=== PATIENT | male | born 1995 | race Caucasian/White ===

== ENCOUNTER 2021-03-07 11:51 | Inpatient (IN) | payer OTHER ==
[~2021-03-07] VITALS: Ht 170.2 cm; Wt 80.6 kg
[2021-03-07] MEDS ORDERED: ONDANSETRON HCL 4 MG/2 ML VIAL IVP ONE (12:45)
[2021-03-07] MEDS ORDERED: SODIUM CHLORIDE 0.9% 1,000 ML IV ONE (12:45)
[2021-03-07 12:55] LABS: GLUCOSE,POINT OF CARE 572 MG/DL (70-110)
[2021-03-07 13:00] LABS: APPEARANCE,URINE CLEAR (CLEAR); BILIRUBIN,URINE NEGATIVE (NEGATIVE); GLUCOSE, URINE (UA) >=1000 mg/dL (NEGATIVE); KETONES,URINE >=80 mg/dL (NEGATIVE); LEUKOCYTE ESTERASE ,URINE NEGATIVE (NEGATIVE); NITRATE,URINE NEGATIVE (NEGATIVE); OCCULT BLOOD,URINE NEGATIVE (NEGATIVE); PROTEIN,URINE NEGATIVE (NEGATIVE); UROBILINOGEN,URINE 0.2 mg/dL (<=1.0)
[2021-03-07] MEDS ORDERED: INSULIN REGULAR, HUMAN 100 UNITS/ML IVP ONE ×3 (13:00→17:15)
[2021-03-07 13:07] LABS: BACTERIA,URINE None Seen /HPF (None Seen); RBC,URINE None Seen /HPF (0-2); SQUAMOUS EPITHELIAL CELL,UR Few /LPF (None Seen); WBC,URINE None Seen /HPF (0-5)
[2021-03-07 14:24] LABS: HEMOGLOBIN 15.8 g/dL (13.5-17.5); MEAN CORPUSCULAR HEMOGLOBIN 27.3 pg (26.0-34.0); MEAN CORPUSCULAR HGB CONC 32.3 G/dL (31.0-37.0); MEAN CORPUSCULAR VOLUME 85 fL (80-100); PLATELET COUNT (AUTO) 367 K/uL (150-450); RED BLOOD CELL COUNT(AUTO) 5.78 MIL/uL (4.50-5.90); RED CELL DISTRIBUTION WIDTH 13.3 % (11.5-14.5)
[2021-03-07 14:39] LABS: ALANINE AMINOTRANSFERASE 21 U/L (12-78); ALBUMIN 3.7 g/dL (3.4-5.0); ALKALINE PHOSPHATASE 182 U/L (46-116); ANION GAP 32 mmol/L (8-16); ASPARTATE AMINOTRANSFERASE 14 U/L (15-37); BILIRUBIN,TOTAL 0.5 mg/dL (0.1-1.0); CALCIUM, TOTAL 9.1 mg/dL (8.8-10.5); CHLORIDE 92 mmol/L (98-107); CREATININE 1.21 mg/dL (0.60-1.30); GLOMERULAR FILTR. RATE CALC > 60 mL/min (>60); POTASSIUM 4.9 mmol/L (3.5-5.1); SODIUM SERUM 129 mmol/L (136-145); TOTAL PROTEIN, SERUM 8.4 g/dL (6.4-8.2); UREA NITROGEN, BLOOD 22 mg/dL (7-18)
[2021-03-07 14:40] LABS: CARBON DIOXIDE 5 mmol/L (22-29); GLUCOSE,RANDOM 482 mg/dL (70-110)
[2021-03-07] MEDS ORDERED: SODIUM CHLORIDE 0.45% 1,000 ML IV PRN ×2 (14:45→17:15)
[2021-03-07] MEDS ORDERED: INSULIN REGULAR, HUMAN 100 UNITS/ML IVP PRN ×2 (14:45→17:15)
[2021-03-07] MEDS ORDERED: POTASSIUM CHLORIDE 40 MEQ in SODIUM CHLORIDE 0.45% 1,000 ML IV PRN ×2 (14:45→17:15)
[2021-03-07] MEDS ORDERED: DEXTROSE 50%-WATER 25 GM/50 ML SYRINGE IVP PRN ×2 (14:45→17:15)
[2021-03-07] MEDS ORDERED: INSULIN REGULAR, HUMAN 100 UNITS in SODIUM CHLORIDE 0.9% 99 ML IV PRN ×4 (14:45→17:15)
[2021-03-07] MEDS ORDERED: DEXTROSE 5%-0.45% SODIUM CHL 1,000 ML IV PRN ×2 (14:45→17:15)
[2021-03-07] MEDS ORDERED: POTASSIUM CHL 20 MEQ/0.45% NS 1,000 ML IV PRN ×2 (14:45→17:15)
[2021-03-07] MEDS ORDERED: SODIUM CHLORIDE 0.9% 1,000 ML IV SCH ×2 (14:45→17:15)
[2021-03-07] MEDS ORDERED: ONDANSETRON HCL 4 MG/2 ML VIAL IVP PRN ×2 (15:00→17:15)
[2021-03-07] MEDS ORDERED: ACETAMINOPHEN 325 MG TABLET PO PRN ×2 (15:00→17:15)
[2021-03-07 15:07] LABS: GLUCOMETER DEV NAME(LOC) AHU.; GLUCOSE,POINT OF CARE 348 MG/DL (70-110)
[2021-03-07 15:32] LABS: BAND NEUTROPHILS % (MANUAL) 2 % (0-5); LYMPHOCYTES % (MANUAL) 12 % (22-44); MONOCYTES % (MANUAL) 4 % (2-9); MYELOCYTES % 2 % (0-0); SEGMENTED NEUTROPHILS % 80 % (40-70)
[2021-03-07 16:28] LABS: GLUCOMETER DEV NAME(LOC) AHU.; GLUCOSE,POINT OF CARE 243 MG/DL (70-110)
[2021-03-07 16:50] LABS: COVID AG,FIA SOURCE NASOPHARYNGEAL
[2021-03-07 16:54] LABS: ANION GAP 19 mmol/L (8-16); CARBON DIOXIDE 12 mmol/L (22-29); CHLORIDE 98 mmol/L (98-107); CREATININE 1.22 mg/dL (0.60-1.30); GLOMERULAR FILTR. RATE CALC > 60 mL/min (>60); GLUCOSE,RANDOM 229 mg/dL (70-110); POTASSIUM 4.1 mmol/L (3.5-5.1); SODIUM SERUM 129 mmol/L (136-145); UREA NITROGEN, BLOOD 20 mg/dL (7-18)
[2021-03-07] MEDS ORDERED: MAGNESIUM OXIDE 400 MG TABLET PO PRN (17:15)
[2021-03-07] MEDS ORDERED: IPRATROPIUM BROMIDE 0.5 MG/2.5 ML NEB SOLUTION NEB PRN (17:15)
[2021-03-07] MEDS ORDERED: ALBUTEROL SULFATE 2.5 MG/0.5 ML NEB SOLUTION NEB PRN (17:15)
[2021-03-07] MEDS ORDERED: POTASSIUM CHLORIDE 20 MEQ ER TABLET PO PRN (17:15)
[2021-03-07] MEDS ORDERED: MAGNESIUM SULFATE 2 GM/WATER 50 ML IV PRN (17:15)
[2021-03-07] MEDS ORDERED: POTASSIUM CHL 10 MEQ/WATER 50 ML IV PRN (17:15)
[2021-03-07] MEDS ORDERED: MAGNESIUM SULFATE 4 GM/WATER 100 ML IV PRN (17:15)
[2021-03-07] MEDS ORDERED: BISACODYL 10 MG RECTAL RECTAL SUPPOSITORY PR PRN (17:15)
[2021-03-07] MEDS ORDERED: ZOLPIDEM TARTRATE 5 MG TABLET PO PRN (17:15)
[2021-03-07] MEDS ORDERED: MAGNESIUM HYDROXIDE SUSPENSION 30 ML UDCUP PO PRN (17:15)
[2021-03-07 17:25] LABS: GLUCOMETER DEV NAME(LOC) AHU.; GLUCOSE,POINT OF CARE 147 MG/DL (70-110)
[2021-03-07 17:42] LABS: ALBUMIN 3.8 g/dL (3.4-5.0)
[2021-03-07] MEDS ORDERED: NICOTINE 21 MG/24 HOUR PATCH TD ONE (18:15)
[2021-03-07] MEDS: MORPHINE SULFATE 2 MG/ML SYRINGE IVP PRN ×2 (18:18→20:21)
[2021-03-07 18:29] LABS: AMPHET/METH SCREEN,URINE NEGATIVE (NEGATIVE); BARBITURATE SCREEN, URINE NEGATIVE (NEGATIVE); BENZODIAZEPINES SCREEN,URINE NEGATIVE (NEGATIVE); CANNABINOID SCREEN,URINE NEGATIVE (NEGATIVE); COCAINE SCREEN,URINE NEGATIVE (NEGATIVE); METHADONE SCREEN, URINE NEGATIVE (NEGATIVE); OPIATE SCREEN,URINE NEGATIVE (NEGATIVE); PHENCYCLIDINE SCREEN,URINE NEGATIVE (NEGATIVE)
[2021-03-07 20:00] VITALS: BP 127/66
[2021-03-07] MEDS: DOCUSATE SODIUM 100 MG CAPSULE PO SCH (20:22)
[2021-03-07 21:15] LABS: ANION GAP 13 mmol/L (8-16); CALCIUM, TOTAL 8.1 mg/dL (8.8-10.5); CARBON DIOXIDE 19 mmol/L (22-29); CHLORIDE 102 mmol/L (98-107); CREATININE 1.06 mg/dL (0.60-1.30); GLOMERULAR FILTR. RATE CALC > 60 mL/min (>60); GLUCOSE,RANDOM 65 mg/dL (70-110); PHOSPHORUS 3.1 mg/dL (2.5-4.9); POTASSIUM 3.8 mmol/L (3.5-5.1); SODIUM SERUM 134 mmol/L (136-145); UREA NITROGEN, BLOOD 15 mg/dL (7-18)
[2021-03-07 21:35] LABS: GLUCOSE,POINT OF CARE 97 MG/DL (70-110)
[2021-03-07 21:35] LABS: GLUCOSE,POINT OF CARE 82 MG/DL (70-110)
[2021-03-07 22:39] LABS: GLUCOSE,POINT OF CARE 118 MG/DL (70-110)
[2021-03-07 22:39] LABS: GLUCOSE,POINT OF CARE 96 MG/DL (70-110)
[2021-03-07 23:11] LABS: GLUCOSE,POINT OF CARE 165 MG/DL (70-110)
[2021-03-07] MEDS: HEPARIN SODIUM,PORCINE 5,000 UNITS/ML VIAL SQ SCH (23:24)
[2021-03-08] VITALS (9 sets, daily range): BP systolic 111–139; BP diastolic 62–100
[2021-03-08] MEDS: MORPHINE SULFATE 2 MG/ML SYRINGE IVP PRN ×7 (00:48→23:29)
[2021-03-08 01:49] LABS: GLUCOSE,POINT OF CARE 124 MG/DL (70-110)
[2021-03-08 01:49] LABS: GLUCOSE,POINT OF CARE 57 MG/DL (70-110)
[2021-03-08 01:49] LABS: GLUCOSE,POINT OF CARE 95 MG/DL (70-110)
[2021-03-08 02:21] LABS: CARBON DIOXIDE 20 mmol/L (22-29); CHLORIDE 104 mmol/L (98-107); POTASSIUM 4.1 mmol/L (3.5-5.1); SODIUM SERUM 136 mmol/L (136-145)
[2021-03-08 02:22] LABS: ANION GAP 12 mmol/L (8-16); CALCIUM, TOTAL 7.9 mg/dL (8.8-10.5); CREATININE 1.07 mg/dL (0.60-1.30); GLOMERULAR FILTR. RATE CALC > 60 mL/min (>60); GLUCOSE,RANDOM 56 mg/dL (70-110); PHOSPHORUS 2.6 mg/dL (2.5-4.9); UREA NITROGEN, BLOOD 12 mg/dL (7-18)
[2021-03-08 03:33] LABS: GLUCOSE,POINT OF CARE 166 MG/DL (70-110)
[2021-03-08 03:33] LABS: GLUCOSE,POINT OF CARE 167 MG/DL (70-110)
[2021-03-08 04:01] LABS: GLUCOSE,POINT OF CARE 143 MG/DL (70-110)
[2021-03-08 05:52] LABS: ANION GAP 14 mmol/L (8-16); CALCIUM, TOTAL 8.3 mg/dL (8.8-10.5); CARBON DIOXIDE 18 mmol/L (22-29); CHLORIDE 103 mmol/L (98-107); CREATININE 0.88 mg/dL (0.60-1.30); GLOMERULAR FILTR. RATE CALC > 60 mL/min (>60); GLUCOSE,RANDOM 111 mg/dL (70-110); PHOSPHORUS 2.8 mg/dL (2.5-4.9); POTASSIUM 4.2 mmol/L (3.5-5.1); SODIUM SERUM 135 mmol/L (136-145); UREA NITROGEN, BLOOD 11 mg/dL (7-18)
[2021-03-08 07:37] LABS: GLUCOSE,POINT OF CARE 113 MG/DL (70-110)
[2021-03-08] MEDS: HEPARIN SODIUM,PORCINE 5,000 UNITS/ML VIAL SQ SCH ×3 (07:44→23:23)
[2021-03-08] MEDS: DOCUSATE SODIUM 100 MG CAPSULE PO SCH ×2 (08:19→20:22)
[2021-03-08] MEDS: PANTOPRAZOLE SODIUM 40 MG/VIAL IVP SCH (08:19)
[2021-03-08 11:21] LABS: GLUCOSE,POINT OF CARE 384 MG/DL (70-110)
[2021-03-08 11:33] LABS: GLUCOSE,POINT OF CARE 133 MG/DL (70-110)
[2021-03-08 12:18] LABS: GLUCOSE,POINT OF CARE 286 MG/DL (70-110)
[2021-03-08] MEDS: HYDROCODONE/ACETAMINOPHEN 5-325 MG TABLET PO PRN ×2 (12:57→17:07)
[2021-03-08 13:12] LABS: ANION GAP 13 mmol/L (8-16); CALCIUM, TOTAL 8.1 mg/dL (8.8-10.5); CARBON DIOXIDE 19 mmol/L (22-29); CHLORIDE 100 mmol/L (98-107); CREATININE 1.21 mg/dL (0.60-1.30); GLOMERULAR FILTR. RATE CALC > 60 mL/min (>60); GLUCOSE,RANDOM 246 mg/dL (70-110); PHOSPHORUS 1.7 mg/dL (2.5-4.9); POTASSIUM 4.3 mmol/L (3.5-5.1); SODIUM SERUM 132 mmol/L (136-145); UREA NITROGEN, BLOOD 10 mg/dL (7-18)
[2021-03-08 13:19] LABS: GLUCOSE,POINT OF CARE 191 MG/DL (70-110)
[2021-03-08] MEDS ORDERED: DEXTROSE 50%-WATER 25 GM/50 ML SYRINGE IVP PRN (14:15)
[2021-03-08] MEDS ORDERED: INSULIN REGULAR, HUMAN 100 UNITS/ML SQ ONE (14:15)
[2021-03-08] MEDS: INSULIN GLARGINE,HUM.REC.ANLOG 100 UNITS/ML SQ SCH ×2 (15:10→20:33)
[2021-03-08 18:23] LABS: BASOPHILS % (AUTO) 0.6 % (0.0-2.0); EOSINOPHILS % (AUTO) 2.9 % (1.0-6.0); HEMATOCRIT 40.6 % (41-53); HEMOGLOBIN 13.6 g/dL (13.5-17.5); LYMPHOCYTES # (AUTO) 2.7 K/uL (1.0-4.8); LYMPHOCYTES % (AUTO) 32.6 % (22.0-44.0); MEAN CORPUSCULAR HEMOGLOBIN 27.3 pg (26.0-34.0); MEAN CORPUSCULAR HGB CONC 33.6 G/dL (31.0-37.0); MEAN CORPUSCULAR VOLUME 81 fL (80-100); MONOCYTES # (AUTO) 0.4 K/uL (0.1-1.0); NEUTROPHILS # (AUTO) 4.9 K/uL (1.8-7.7); NEUTROPHILS % (AUTO) 58.9 % (40.0-70.0); PLATELET COUNT (AUTO) 311 K/uL (150-450); RED BLOOD CELL COUNT(AUTO) 4.99 MIL/uL (4.50-5.90); RED CELL DISTRIBUTION WIDTH 13.3 % (11.5-14.5)
[2021-03-08 18:47] LABS: ALANINE AMINOTRANSFERASE 21 U/L (12-78); ALBUMIN 2.9 g/dL (3.4-5.0); ALKALINE PHOSPHATASE 117 U/L (46-116); ANION GAP 11 mmol/L (8-16); ASPARTATE AMINOTRANSFERASE 23 U/L (15-37); BILIRUBIN,TOTAL 0.4 mg/dL (0.1-1.0); CALCIUM, TOTAL 8.1 mg/dL (8.8-10.5); CARBON DIOXIDE 19 mmol/L (22-29); CHLORIDE 101 mmol/L (98-107); CREATININE 0.99 mg/dL (0.60-1.30); GLOMERULAR FILTR. RATE CALC > 60 mL/min (>60); GLUCOSE,RANDOM 187 mg/dL (70-110); POTASSIUM 4.1 mmol/L (3.5-5.1); SODIUM SERUM 131 mmol/L (136-145); TOTAL PROTEIN, SERUM 6.2 g/dL (6.4-8.2); UREA NITROGEN, BLOOD 7 mg/dL (7-18)
[2021-03-08] MEDS: INSULIN LISPRO 100 UNITS/ML SQ PRN (20:33)
[2021-03-08 23:33] LABS: GLUCOSE,POINT OF CARE 157 MG/DL (70-110)
[2021-03-08 23:33] LABS: GLUCOSE,POINT OF CARE 139 MG/DL (70-110)
[2021-03-09] VITALS: BP 96/63
[2021-03-09 00:20] VITALS: BP 96/63
[2021-03-09 03:30] VITALS: BP 130/81
[2021-03-09] MEDS: MORPHINE SULFATE 2 MG/ML SYRINGE IVP PRN ×4 (03:48→13:13)
[2021-03-09 06:13] LABS: GLUCOSE,POINT OF CARE 78 MG/DL (70-110)
[2021-03-09 06:13] LABS: GLUCOSE,POINT OF CARE 209 MG/DL (70-110)
[2021-03-09 06:22] LABS: GLUCOMETER DEV NAME(LOC) 6N.1; GLUCOSE,POINT OF CARE 87 MG/DL (70-110)
[2021-03-09 08:13] LABS: BASOPHILS % (AUTO) 0.7 % (0.0-2.0); EOSINOPHILS % (AUTO) 4.8 % (1.0-6.0); HEMATOCRIT 41.3 % (41-53); LYMPHOCYTES # (AUTO) 2.3 K/uL (1.0-4.8); LYMPHOCYTES % (AUTO) 43.9 % (22.0-44.0); MEAN CORPUSCULAR HEMOGLOBIN 27.2 pg (26.0-34.0); MEAN CORPUSCULAR HGB CONC 33.8 G/dL (31.0-37.0); MEAN CORPUSCULAR VOLUME 81 fL (80-100); MONOCYTES # (AUTO) 0.4 K/uL (0.1-1.0); MONOCYTES % (AUTO) 7.3 % (2.0-9.0); NEUTROPHILS # (AUTO) 2.3 K/uL (1.8-7.7); NEUTROPHILS % (AUTO) 43.3 % (40.0-70.0); PLATELET COUNT (AUTO) 275 K/uL (150-450); RED BLOOD CELL COUNT(AUTO) 5.12 MIL/uL (4.50-5.90); RED CELL DISTRIBUTION WIDTH 13.6 % (11.5-14.5)
[2021-03-09 08:14] VITALS: BP 123/58
[2021-03-09 08:24] LABS: ANION GAP 7 mmol/L (8-16); CALCIUM, TOTAL 8.6 mg/dL (8.8-10.5); CARBON DIOXIDE 25 mmol/L (22-29); CHLORIDE 102 mmol/L (98-107); CREATININE 0.81 mg/dL (0.60-1.30); GLOMERULAR FILTR. RATE CALC > 60 mL/min (>60); GLUCOSE,RANDOM 231 mg/dL (70-110); POTASSIUM 3.9 mmol/L (3.5-5.1); SODIUM SERUM 134 mmol/L (136-145); UREA NITROGEN, BLOOD 5 mg/dL (7-18)
[2021-03-09] MEDS: PANTOPRAZOLE SODIUM 40 MG/VIAL IVP SCH (08:58)
[2021-03-09] MEDS: HEPARIN SODIUM,PORCINE 5,000 UNITS/ML VIAL SQ SCH (08:58)
[2021-03-09] MEDS: INSULIN GLARGINE,HUM.REC.ANLOG 100 UNITS/ML SQ SCH (09:00)
[2021-03-09] MEDS: DOCUSATE SODIUM 100 MG CAPSULE PO SCH (11:43)
[2021-03-09] MEDS: HYDROCODONE/ACETAMINOPHEN 5-325 MG TABLET PO PRN (11:49)
[2021-03-09] MEDS: INSULIN LISPRO 100 UNITS/ML SQ PRN (11:53)
[2021-03-09] MEDS ORDERED: INSU100I34 SQ (14:07)
[2021-03-09] MEDS ORDERED: HYDR-4723 PO (14:07)
[2021-03-09 19:57] LABS: GLUCOMETER DEV NAME(LOC) 6S.1; GLUCOSE,POINT OF CARE 210 MG/DL (70-110)
== END 2021-03-09 14:30 | disposition home or self-care (01) | DRG 420 ==
LOC: EMS 11:56 → ICU 17:55 → 6N 03-09 03:15
PROVIDERS: ADMIT Hospitalist; ATTEND Hospitalist
DX: E10.10 Type 1 diabetes mellitus with ketoacidosis without coma (principal); E78.00 Pure hypercholesterolemia, unspecified; Z20.822 Contact with and (suspected) exposure to COVID-19; F15.10 Other stimulant abuse, uncomplicated; I10 Essential (primary) hypertension; F32.9 Major depressive disorder, single episode, unspecified; Z88.8 Allergy status to other drugs, medicaments and biological substances; Z79.4 Long term (current) use of insulin
CPT/HCPCS: 71045; 80048; 80053; 81001; 82009; 82040; 82948; 82962; 83735; 84100; 85025; 87081; 93005; 99291; C9113; G0378; J1644; J1815; J2270; J2405; J3480; J7030; J7050; 36415-L1; 36415-TC

== ENCOUNTER 2021-05-07 20:33 | Emergency (ER) | payer OTHER ==
[~2021-05-07 20:33] MED LIST: AMLO-257 PO; FLUO20CA36 PO; GABA-529 PO; INSLAN SQ
== END 2021-05-07 21:00 | disposition left against medical advice (07) ==
LOC: EMS 20:38
DX: R45.851 Suicidal ideations (principal); Z53.21 Procedure and treatment not carried out due to patient leaving prior to being seen by health care provider

== ENCOUNTER 2021-08-09 10:13 | Inpatient (IN) | payer OTHER ==
[~2021-08-09] VITALS: Ht 167.6 cm; Wt 101.7 kg
[2021-08-09] MEDS ORDERED: FAMOTIDINE 10 MG/ML 2 ML VIAL IVP ONE (11:00)
[2021-08-09] MEDS ORDERED: SODIUM CHLORIDE 0.9% 1,000 ML IV ONE (11:00)
[2021-08-09] MEDS ORDERED: ONDANSETRON HCL 4 MG/2 ML VIAL IVP ONE (11:00)
[2021-08-09] MEDS ORDERED: MAG HYDROX/AL HYDROX/SIMETH 30 ML SUSP UDCUP PO ONE (11:00)
[2021-08-09] MEDS ORDERED: KETOROLAC TROMETHAMINE 30 MG/ML VIAL IVP ONE (11:00)
[2021-08-09 11:47] LABS: BASOPHILS % (AUTO) 0.3 % (0.0-2.0); EOSINOPHILS % (AUTO) 0.3 % (1.0-6.0); HEMATOCRIT 49.7 % (41-53); HEMOGLOBIN 15.7 g/dL (13.5-17.5); LYMPHOCYTES # (AUTO) 1.3 K/uL (1.0-4.8); LYMPHOCYTES % (AUTO) 7.7 % (22.0-44.0); MEAN CORPUSCULAR HEMOGLOBIN 27.6 pg (26.0-34.0); MEAN CORPUSCULAR HGB CONC 31.5 G/dL (31.0-37.0); MEAN CORPUSCULAR VOLUME 88 fL (80-100); MONOCYTES # (AUTO) 0.7 K/uL (0.1-1.0); MONOCYTES % (AUTO) 4.4 % (2.0-9.0); NEUTROPHILS # (AUTO) 14.1 K/uL (1.8-7.7); PLATELET COUNT (AUTO) 365 K/uL (150-450); RED BLOOD CELL COUNT(AUTO) 5.67 MIL/uL (4.50-5.90); RED CELL DISTRIBUTION WIDTH 13.7 % (11.5-14.5)
[2021-08-09 11:52] LABS: NEUTROPHILS % (AUTO) 87.3 % (40.0-70.0)
[2021-08-09 12:39] LABS: ALANINE AMINOTRANSFERASE 23 U/L (12-78); ALBUMIN 3.8 g/dL (3.4-5.0); ALKALINE PHOSPHATASE 127 U/L (46-116); ANION GAP 28 mmol/L (8-16); ASPARTATE AMINOTRANSFERASE 13 U/L (15-37); BILIRUBIN,TOTAL 0.7 mg/dL (0.1-1.0); CALCIUM, TOTAL 9.4 mg/dL (8.8-10.5); CHLORIDE 90 mmol/L (98-107); CREATINE KINASE, TOTAL ONLY 59 U/L (39-308); CREATININE 1.29 mg/dL (0.60-1.30); GLOMERULAR FILTR. RATE CALC > 60 mL/min (>60); PHOSPHORUS 5.2 mg/dL (2.5-4.9); SODIUM SERUM 127 mmol/L (136-145); UREA NITROGEN, BLOOD 23 mg/dL (7-18)
[2021-08-09 12:44] LABS: CARBON DIOXIDE 9 mmol/L (22-29); GLUCOSE,RANDOM 636 mg/dL (70-110); POTASSIUM 6.3 mmol/L (3.5-5.1)
[2021-08-09] MEDS ORDERED: POTASSIUM CHLORIDE 40 MEQ in SODIUM CHLORIDE 0.45% 1,000 ML IV PRN (12:45)
[2021-08-09] MEDS ORDERED: SODIUM CHLORIDE 0.9% 1,000 ML IV SCH (12:45)
[2021-08-09] MEDS ORDERED: DEXTROSE 50%-WATER 25 GM/50 ML SYRINGE IVP PRN (12:45)
[2021-08-09] MEDS ORDERED: INSULIN REGULAR, HUMAN 100 UNITS/ML IVP ONE (12:45)
[2021-08-09] MEDS ORDERED: INSULIN REGULAR, HUMAN 100 UNITS/ML IVP PRN (12:45)
[2021-08-09] MEDS ORDERED: POTASSIUM CHL 20 MEQ/0.45% NS 1,000 ML IV PRN (12:45)
[2021-08-09] MEDS ORDERED: SODIUM CHLORIDE 0.45% 1,000 ML IV PRN (12:45)
[2021-08-09] MEDS ORDERED: MAGNESIUM HYDROXIDE SUSPENSION 30 ML UDCUP PO PRN (13:00)
[2021-08-09] MEDS ORDERED: ONDANSETRON HCL 4 MG/2 ML VIAL IVP PRN (13:00)
[2021-08-09] MEDS ORDERED: ACETAMINOPHEN 325 MG TABLET PO PRN (13:00)
[2021-08-09 13:02] LABS: ACETONE,BLOOD 1:16 (NEGATIVE)
[2021-08-09] MEDS ORDERED: MORPHINE SULFATE 4 MG/ML SYRINGE IVP ONE (13:15)
[2021-08-09] MEDS: INSULIN REGULAR, HUMAN 100 UNITS in SODIUM CHLORIDE 0.9% 99 ML IV PRN ×2 (13:21)
[2021-08-09 13:33] LABS: LIPASE 30 U/L (73-393)
[2021-08-09 15:27] LABS: ABG BASE EXCESS -22.3 mmol/L (-2.0-3.0); ABG CARBOXYHEMOGLOBIN 0.3 % (0.0-3.0); ABG METHEMOGLOBIN 0.3 % (0.0-1.5); ABG OXYGEN CONTENT 19.8 mL/dL (15.0-23.0); ABG OXYGEN SATURATION 97.3 % (95.0-98.0); ABG OXYHEMOGLOBIN 96.7 % (94.0-100.0); ABG PCO2 22 mmHg (35-45); ABG TOTAL HEMOGLOBIN 14.5 G/dL (12.0-18.0); PO2, ARTERIAL BG 101.5 mmHg (80.0-100.0); SOURCE, BLOOD GAS ARTERIAL; TEMPERATURE, FAHRENHEIT, BG 98.6 FAHREN (96.0-98.6)
[2021-08-09] MEDS: HEPARIN SODIUM,PORCINE 5,000 UNITS/ML VIAL SQ SCH (15:28)
[2021-08-09 15:45] LABS: ABG PH 7.126 (7.350-7.450)
[2021-08-09 15:46] LABS: O2 DEVICE,BLOOD GAS ROOM AIR (ROOM AIR); SITE, BLOOD GAS LFT RADIAL
[2021-08-09 16:19] LABS: GLUCOSE,POINT OF CARE 178 MG/DL (70-110)
[2021-08-09 16:20] LABS: GLUCOSE,POINT OF CARE 277 MG/DL (70-110)
[2021-08-09] MEDS: DEXTROSE 5%-0.45% SODIUM CHL 1,000 ML IV PRN (17:24)
[2021-08-09 17:25] LABS: ANION GAP 22 mmol/L (8-16); CARBON DIOXIDE 14 mmol/L (22-29); CHLORIDE 101 mmol/L (98-107); CREATININE 1.25 mg/dL (0.60-1.30); GLOMERULAR FILTR. RATE CALC > 60 mL/min (>60); GLUCOSE,RANDOM 153 mg/dL (70-110); POTASSIUM 4.9 mmol/L (3.5-5.1); SODIUM SERUM 137 mmol/L (136-145); UREA NITROGEN, BLOOD 22 mg/dL (7-18)
[2021-08-09 17:32] LABS: GLUCOMETER DEV NAME(LOC) ERT.5; GLUCOSE,POINT OF CARE 102 MG/DL (70-110)
[2021-08-09 18:44] LABS: GLUCOSE,POINT OF CARE 129 MG/DL (70-110)
[2021-08-09 18:52] LABS: ANION GAP 19 mmol/L (8-16); CALCIUM, TOTAL 8.2 mg/dL (8.8-10.5); CARBON DIOXIDE 15 mmol/L (22-29); CHLORIDE 102 mmol/L (98-107); CREATININE 1.21 mg/dL (0.60-1.30); GLOMERULAR FILTR. RATE CALC > 60 mL/min (>60); GLUCOSE,RANDOM 138 mg/dL (70-110); POTASSIUM 4.8 mmol/L (3.5-5.1); SODIUM SERUM 136 mmol/L (136-145); UREA NITROGEN, BLOOD 18 mg/dL (7-18)
[2021-08-09 18:57] LABS: ALANINE AMINOTRANSFERASE 19 U/L (12-78); ALBUMIN 3.2 g/dL (3.4-5.0); ALKALINE PHOSPHATASE 109 U/L (46-116); ASPARTATE AMINOTRANSFERASE 13 U/L (15-37); BILIRUBIN,TOTAL 0.6 mg/dL (0.1-1.0); TOTAL PROTEIN, SERUM 6.8 g/dL (6.4-8.2)
[2021-08-09] MEDS: MORPHINE SULFATE 2 MG/ML SYRINGE IVP PRN (19:23)
[2021-08-09 19:46] LABS: APPEARANCE,URINE CLOUDY (CLEAR); GLUCOSE, URINE (UA) >=1000 mg/dL (NEGATIVE); KETONES,URINE >=80 mg/dL (NEGATIVE); LEUKOCYTE ESTERASE ,URINE NEGATIVE (NEGATIVE); NITRATE,URINE NEGATIVE (NEGATIVE); OCCULT BLOOD,URINE TRACE (NEGATIVE); PROTEIN,URINE POS 1+ (NEGATIVE); UROBILINOGEN,URINE 0.2 mg/dL (<=1.0)
[2021-08-09 19:52] LABS: BILIRUBIN,URINE PRELIM. POSITIVE (NEGATIVE)
[2021-08-09 19:57] LABS: AMPHET/METH SCREEN,URINE NEGATIVE (NEGATIVE); BARBITURATE SCREEN, URINE NEGATIVE (NEGATIVE); BENZODIAZEPINES SCREEN,URINE NEGATIVE (NEGATIVE); CANNABINOID SCREEN,URINE NEGATIVE (NEGATIVE); COCAINE SCREEN,URINE NEGATIVE (NEGATIVE); METHADONE SCREEN, URINE NEGATIVE (NEGATIVE); OPIATE SCREEN,URINE POSITIVE (NEGATIVE); PHENCYCLIDINE SCREEN,URINE NEGATIVE (NEGATIVE)
[2021-08-09 20:03] LABS: GLUCOMETER DEV NAME(LOC) ERT.5; GLUCOSE,POINT OF CARE 114 MG/DL (70-110)
[2021-08-09 20:45] LABS: RBC,URINE None Seen /HPF (0-2)
[2021-08-09 20:46] LABS: BACTERIA,URINE None Seen /HPF (None Seen); WBC,URINE None Seen /HPF (0-5)
[2021-08-09 21:15] LABS: ANION GAP 17 mmol/L (8-16); CALCIUM, TOTAL 8.8 mg/dL (8.8-10.5); CARBON DIOXIDE 16 mmol/L (22-29); CHLORIDE 102 mmol/L (98-107); CREATININE 1.15 mg/dL (0.60-1.30); GLOMERULAR FILTR. RATE CALC > 60 mL/min (>60); GLUCOSE,RANDOM 143 mg/dL (70-110); POTASSIUM 4.7 mmol/L (3.5-5.1); SODIUM SERUM 135 mmol/L (136-145); UREA NITROGEN, BLOOD 18 mg/dL (7-18)
[2021-08-09 21:18] LABS: GLUCOMETER DEV NAME(LOC) ERT.5; GLUCOSE,POINT OF CARE 145 MG/DL (70-110)
[2021-08-09 22:04] LABS: COVID AG,FIA SOURCE NASOPHARYNGEAL
[2021-08-09 22:22] LABS: GLUCOMETER DEV NAME(LOC) ERT.5; GLUCOSE,POINT OF CARE 140 MG/DL (70-110)
[2021-08-09 23:57] LABS: GLUCOMETER DEV NAME(LOC) ERT.5; GLUCOSE,POINT OF CARE 176 MG/DL (70-110)
[2021-08-10 01:17] LABS: GLUCOMETER DEV NAME(LOC) ERT.5; GLUCOSE,POINT OF CARE 182 MG/DL (70-110)
[2021-08-10 01:31] LABS: ANION GAP 18 mmol/L (8-16); CALCIUM, TOTAL 8.5 mg/dL (8.8-10.5); CARBON DIOXIDE 19 mmol/L (22-29); CHLORIDE 102 mmol/L (98-107); CREATININE 1.11 mg/dL (0.60-1.30); GLOMERULAR FILTR. RATE CALC > 60 mL/min (>60); GLUCOSE,RANDOM 204 mg/dL (70-110); POTASSIUM 4.6 mmol/L (3.5-5.1); SODIUM SERUM 139 mmol/L (136-145); UREA NITROGEN, BLOOD 15 mg/dL (7-18)
[2021-08-10 02:46] LABS: GLUCOMETER DEV NAME(LOC) ERT.5; GLUCOSE,POINT OF CARE 195 MG/DL (70-110)
[2021-08-10] MEDS: INSULIN REGULAR, HUMAN 100 UNITS in SODIUM CHLORIDE 0.9% 99 ML IV PRN ×2 (02:58)
[2021-08-10 03:54] LABS: GLUCOMETER DEV NAME(LOC) ERT.5; GLUCOSE,POINT OF CARE 178 MG/DL (70-110)
[2021-08-10 05:04] LABS: GLUCOMETER DEV NAME(LOC) ERT.5; GLUCOSE,POINT OF CARE 155 MG/DL (70-110)
[2021-08-10 05:55] LABS: ALANINE AMINOTRANSFERASE 19 U/L (12-78); ALBUMIN 2.9 g/dL (3.4-5.0); ALKALINE PHOSPHATASE 90 U/L (46-116); ANION GAP 14 mmol/L (8-16); ASPARTATE AMINOTRANSFERASE 10 U/L (15-37); BILIRUBIN,TOTAL 0.4 mg/dL (0.1-1.0); CALCIUM, TOTAL 8.4 mg/dL (8.8-10.5); CARBON DIOXIDE 21 mmol/L (22-29); CHLORIDE 103 mmol/L (98-107); CREATININE 1.02 mg/dL (0.60-1.30); GLOMERULAR FILTR. RATE CALC > 60 mL/min (>60); GLUCOSE,RANDOM 156 mg/dL (70-110); PHOSPHORUS 2.6 mg/dL (2.5-4.9); POTASSIUM 3.9 mmol/L (3.5-5.1); SODIUM SERUM 138 mmol/L (136-145); TOTAL PROTEIN, SERUM 6.4 g/dL (6.4-8.2); UREA NITROGEN, BLOOD 11 mg/dL (7-18)
[2021-08-10 06:21] LABS: GLUCOMETER DEV NAME(LOC) ERT.5; GLUCOSE,POINT OF CARE 143 MG/DL (70-110)
[2021-08-10] MEDS: DEXTROSE 5%-0.45% SODIUM CHL 1,000 ML IV PRN (06:21)
[2021-08-10 07:48] LABS: GLUCOMETER DEV NAME(LOC) ERT.5; GLUCOSE,POINT OF CARE 125 MG/DL (70-110)
[2021-08-10] MEDS: HEPARIN SODIUM,PORCINE 5,000 UNITS/ML VIAL SQ SCH ×4 (09:03→23:24)
[2021-08-10] MEDS: FAMOTIDINE 20 MG TABLET PO SCH (09:03)
[2021-08-10] MEDS: MORPHINE SULFATE 2 MG/ML SYRINGE IVP PRN ×4 (09:41→20:29)
[2021-08-10 09:52] LABS: ANION GAP 8 mmol/L (8-16); CALCIUM, TOTAL 8.6 mg/dL (8.8-10.5); CARBON DIOXIDE 23 mmol/L (22-29); CHLORIDE 105 mmol/L (98-107); CREATININE 1.09 mg/dL (0.60-1.30); GLOMERULAR FILTR. RATE CALC > 60 mL/min (>60); GLUCOSE,RANDOM 154 mg/dL (70-110); POTASSIUM 4.3 mmol/L (3.5-5.1); SODIUM SERUM 136 mmol/L (136-145); UREA NITROGEN, BLOOD 10 mg/dL (7-18)
[2021-08-10 10:51] LABS: GLUCOMETER DEV NAME(LOC) ERT.5; GLUCOSE,POINT OF CARE 208 MG/DL (70-110)
[2021-08-10] MEDS ORDERED: DEXTROSE 50%-WATER 25 GM/50 ML SYRINGE IVP PRN (12:00)
[2021-08-10] MEDS ORDERED: INSULIN GLARGINE,HUM.REC.ANLOG 100 UNITS/ML SQ ONE (12:00)
[2021-08-10] MEDS ORDERED: INSULIN REGULAR, HUMAN 100 UNITS/ML SQ ONE (12:00)
[2021-08-10 12:27] LABS: GLUCOMETER DEV NAME(LOC) ERT.5; GLUCOSE,POINT OF CARE 306 MG/DL (70-110)
[2021-08-10 13:32] LABS: GLUCOMETER DEV NAME(LOC) ERT.5; GLUCOSE,POINT OF CARE 432 MG/DL (70-110)
[2021-08-10 13:44] LABS: ANION GAP 10 mmol/L (8-16); CALCIUM, TOTAL 8.6 mg/dL (8.8-10.5); CARBON DIOXIDE 23 mmol/L (22-29); CHLORIDE 101 mmol/L (98-107); CREATININE 1.11 mg/dL (0.60-1.30); GLOMERULAR FILTR. RATE CALC > 60 mL/min (>60); POTASSIUM 5.4 mmol/L (3.5-5.1); SODIUM SERUM 134 mmol/L (136-145); UREA NITROGEN, BLOOD 10 mg/dL (7-18)
[2021-08-10] MEDS ORDERED: INSULIN LISPRO 100 UNITS/ML SQ ONE (13:45)
[2021-08-10 13:48] LABS: GLUCOSE,RANDOM 443 mg/dL (70-110)
[2021-08-10] MEDS: SODIUM CHLORIDE 0.45% 1,000 ML IV SCH ×2 (13:57→23:24)
[2021-08-10 15:45] LABS: GLUCOMETER DEV NAME(LOC) ERT.5; GLUCOSE,POINT OF CARE 256 MG/DL (70-110)
[2021-08-10] MEDS: INSULIN LISPRO 100 UNITS/ML SQ PRN (15:49)
[2021-08-10 18:03] LABS: ANION GAP 9 mmol/L (8-16); CALCIUM, TOTAL 9.4 mg/dL (8.8-10.5); CARBON DIOXIDE 24 mmol/L (22-29); CHLORIDE 106 mmol/L (98-107); CREATININE 0.97 mg/dL (0.60-1.30); GLOMERULAR FILTR. RATE CALC > 60 mL/min (>60); GLUCOSE,RANDOM 86 mg/dL (70-110); POTASSIUM 3.5 mmol/L (3.5-5.1); SODIUM SERUM 139 mmol/L (136-145); UREA NITROGEN, BLOOD 11 mg/dL (7-18)
[2021-08-10] MEDS ORDERED: PNEUMOCOCCAL VACCINE POLYVALENT 0.5 ML VIAL [PPSV23] IM. ONE (18:45)
[2021-08-10] MEDS ORDERED: INFLUENZA VIRUS VACCINE QVS 2021-22 (6MO+)/PF 60 MCG/0.5 ML SYRINGE IM. ONE (18:45)
[2021-08-10 19:57] VITALS: BP 130/77
[2021-08-10] MEDS: INSULIN GLARGINE,HUM.REC.ANLOG 100 UNITS/ML SQ SCH (20:28)
[2021-08-10 21:28] LABS: ANION GAP 12 mmol/L (8-16); CALCIUM, TOTAL 8.9 mg/dL (8.8-10.5); CARBON DIOXIDE 26 mmol/L (22-29); CHLORIDE 106 mmol/L (98-107); CREATININE 1.01 mg/dL (0.60-1.30); GLOMERULAR FILTR. RATE CALC > 60 mL/min (>60); GLUCOSE,RANDOM 101 mg/dL (70-110); POTASSIUM 3.6 mmol/L (3.5-5.1); SODIUM SERUM 144 mmol/L (136-145); UREA NITROGEN, BLOOD 12 mg/dL (7-18)
[2021-08-11] VITALS (7 sets, daily range): BP systolic 112–134; BP diastolic 64–93
[2021-08-11 00:07] LABS: GLUCOMETER DEV NAME(LOC) 5S.2B; GLUCOSE,POINT OF CARE 105 MG/DL (70-110)
[2021-08-11 01:05] LABS: ANION GAP 10 mmol/L (8-16); CALCIUM, TOTAL 8.4 mg/dL (8.8-10.5); CARBON DIOXIDE 26 mmol/L (22-29); CHLORIDE 105 mmol/L (98-107); CREATININE 0.92 mg/dL (0.60-1.30); GLOMERULAR FILTR. RATE CALC > 60 mL/min (>60); GLUCOSE,RANDOM 169 mg/dL (70-110); POTASSIUM 3.4 mmol/L (3.5-5.1); SODIUM SERUM 141 mmol/L (136-145); UREA NITROGEN, BLOOD 11 mg/dL (7-18)
[2021-08-11] MEDS: MORPHINE SULFATE 2 MG/ML SYRINGE IVP PRN ×4 (05:49→23:31)
[2021-08-11 06:07] LABS: GLUCOMETER DEV NAME(LOC) 5N.3; GLUCOSE,POINT OF CARE 111 MG/DL (70-110)
[2021-08-11] MEDS: INSULIN LISPRO 100 UNITS/ML SQ PRN ×4 (06:07→20:30)
[2021-08-11 07:08] LABS: GLUCOMETER DEV NAME(LOC) 5S.2B; GLUCOSE,POINT OF CARE 257 MG/DL (70-110)
[2021-08-11 08:34] LABS: ANION GAP 11 mmol/L (8-16); CALCIUM, TOTAL 8.2 mg/dL (8.8-10.5); CARBON DIOXIDE 24 mmol/L (22-29); CHLORIDE 105 mmol/L (98-107); CREATININE 0.87 mg/dL (0.60-1.30); GLOMERULAR FILTR. RATE CALC > 60 mL/min (>60); GLUCOSE,RANDOM 233 mg/dL (70-110); POTASSIUM 3.4 mmol/L (3.5-5.1); SODIUM SERUM 140 mmol/L (136-145); UREA NITROGEN, BLOOD 8 mg/dL (7-18)
[2021-08-11] MEDS: FAMOTIDINE 20 MG TABLET PO SCH (09:14)
[2021-08-11] MEDS: HEPARIN SODIUM,PORCINE 5,000 UNITS/ML VIAL SQ SCH ×3 (09:14→23:30)
[2021-08-11] MEDS ORDERED: POTASSIUM CHLORIDE 20 MEQ ER TABLET PO ONE (09:15)
[2021-08-11] MEDS: INSULIN GLARGINE,HUM.REC.ANLOG 100 UNITS/ML SQ SCH ×2 (09:19→20:31)
[2021-08-11 12:34] LABS: GLUCOMETER DEV NAME(LOC) 5S.2B; GLUCOSE,POINT OF CARE 236 MG/DL (70-110)
[2021-08-11 12:50] LABS: ANION GAP 6 mmol/L (8-16); CALCIUM, TOTAL 8.6 mg/dL (8.8-10.5); CARBON DIOXIDE 26 mmol/L (22-29); CHLORIDE 105 mmol/L (98-107); CREATININE 0.82 mg/dL (0.60-1.30); GLOMERULAR FILTR. RATE CALC > 60 mL/min (>60); GLUCOSE,RANDOM 239 mg/dL (70-110); POTASSIUM 4.2 mmol/L (3.5-5.1); SODIUM SERUM 137 mmol/L (136-145); UREA NITROGEN, BLOOD 9 mg/dL (7-18)
[2021-08-11 14:55] LABS: ANION GAP 5 mmol/L (8-16); CALCIUM, TOTAL 8.6 mg/dL (8.8-10.5); CARBON DIOXIDE 25 mmol/L (22-29); CHLORIDE 103 mmol/L (98-107); CREATININE 0.95 mg/dL (0.60-1.30); GLOMERULAR FILTR. RATE CALC > 60 mL/min (>60); GLUCOSE,RANDOM 317 mg/dL (70-110); POTASSIUM 4.4 mmol/L (3.5-5.1); SODIUM SERUM 133 mmol/L (136-145); UREA NITROGEN, BLOOD 10 mg/dL (7-18)
[2021-08-11] MEDS ORDERED: LORazepam 1 MG TABLET PO PRN (21:15)
[2021-08-11] MEDS ORDERED: OLANZapine 5 MG RAPDIS TABLET PO PRN (21:15)
[2021-08-11 21:43] LABS: GLUCOMETER DEV NAME(LOC) 5S.2B; GLUCOSE,POINT OF CARE 192 MG/DL (70-110)
[2021-08-12 01:25] LABS: GLUCOMETER DEV NAME(LOC) 5N.3; GLUCOSE,POINT OF CARE 147 MG/DL (70-110)
[2021-08-12 01:25] LABS: GLUCOMETER DEV NAME(LOC) 5N.3; GLUCOSE,POINT OF CARE 97 MG/DL (70-110)
[2021-08-12 04:26] VITALS: BP 130/79
[2021-08-12] MEDS: INSULIN LISPRO 100 UNITS/ML SQ PRN ×2 (06:16→12:01)
[2021-08-12 07:28] VITALS: BP 116/70
[2021-08-12] MEDS: FAMOTIDINE 20 MG TABLET PO SCH (08:40)
[2021-08-12] MEDS: HEPARIN SODIUM,PORCINE 5,000 UNITS/ML VIAL SQ SCH (08:40)
[2021-08-12] MEDS: MORPHINE SULFATE 2 MG/ML SYRINGE IVP PRN ×2 (08:43→14:38)
[2021-08-12] MEDS: INSULIN GLARGINE,HUM.REC.ANLOG 100 UNITS/ML SQ SCH (08:43)
[2021-08-12] MEDS ORDERED: OMEGA-3/DHA/EPA/FISH OIL 1,000 MG CAPSULE PO SCH (09:00)
[2021-08-12] MEDS ORDERED: FLUoxetine HCL 20 MG CAPSULE PO SCH (09:00)
[2021-08-12] MEDS ORDERED: OLANZapine 5 MG RAPDIS TABLET PO SCH (09:00)
[2021-08-12 09:16] LABS: GLUCOMETER DEV NAME(LOC) 5S.2B; GLUCOSE,POINT OF CARE 125 MG/DL (70-110)
[2021-08-12 09:38] LABS: GLUCOMETER DEV NAME(LOC) 5N.3; GLUCOSE,POINT OF CARE 109 MG/DL (70-110)
[2021-08-12 10:51] VITALS: BP 108/69
[2021-08-12 12:53] LABS: GLUCOMETER DEV NAME(LOC) 5S.2B; GLUCOSE,POINT OF CARE 294 MG/DL (70-110)
[2021-08-12 14:01] LABS: BASOPHILS % (AUTO) 0.4 % (0.0-2.0); EOSINOPHILS % (AUTO) 2.7 % (1.0-6.0); HEMATOCRIT 41.4 % (41-53); HEMOGLOBIN 13.9 g/dL (13.5-17.5); LYMPHOCYTES # (AUTO) 1.3 K/uL (1.0-4.8); LYMPHOCYTES % (AUTO) 21.8 % (22.0-44.0); MEAN CORPUSCULAR HEMOGLOBIN 27.5 pg (26.0-34.0); MEAN CORPUSCULAR HGB CONC 33.5 G/dL (31.0-37.0); MEAN CORPUSCULAR VOLUME 82 fL (80-100); MONOCYTES # (AUTO) 0.4 K/uL (0.1-1.0); MONOCYTES % (AUTO) 6.8 % (2.0-9.0); NEUTROPHILS % (AUTO) 68.3 % (40.0-70.0); PLATELET COUNT (AUTO) 307 K/uL (150-450); RED BLOOD CELL COUNT(AUTO) 5.05 MIL/uL (4.50-5.90); RED CELL DISTRIBUTION WIDTH 13.4 % (11.5-14.5)
[2021-08-12 14:27] LABS: ALANINE AMINOTRANSFERASE 45 U/L (12-78); ALBUMIN 2.8 g/dL (3.4-5.0); ALKALINE PHOSPHATASE 95 U/L (46-116); ANION GAP 9 mmol/L (8-16); ASPARTATE AMINOTRANSFERASE 58 U/L (15-37); BILIRUBIN,TOTAL 0.2 mg/dL (0.1-1.0); CALCIUM, TOTAL 8.8 mg/dL (8.8-10.5); CARBON DIOXIDE 26 mmol/L (22-29); CHLORIDE 101 mmol/L (98-107); CREATININE 1.13 mg/dL (0.60-1.30); GLOMERULAR FILTR. RATE CALC > 60 mL/min (>60); POTASSIUM 4.9 mmol/L (3.5-5.1); SODIUM SERUM 136 mmol/L (136-145); TOTAL PROTEIN, SERUM 6.5 g/dL (6.4-8.2); UREA NITROGEN, BLOOD 12 mg/dL (7-18)
[2021-08-12 14:33] LABS: GLUCOSE,RANDOM 414 mg/dL (70-110)
[2021-08-12 15:11] VITALS: BP 140/97
[2021-08-12 17:13] LABS: GLUCOMETER DEV NAME(LOC) 5S.2B; GLUCOSE,POINT OF CARE 281 MG/DL (70-110)
[2021-08-12 17:33] LABS: GLUCOMETER DEV NAME(LOC) 3EX.; GLUCOSE,POINT OF CARE 294 MG/DL (70-110)
[2021-08-12] MEDS ORDERED: MELATONIN 5 MG TABLET PO SCH (21:00)
[2021-08-12] MEDS ORDERED: NALT50TA PO (21:05)
[2021-08-12] MEDS ORDERED: PROZ20 PO (21:05)
[2021-08-12] MEDS ORDERED: OMEG-135 PO (21:05)
[2021-08-12] MEDS ORDERED: OLAN5TAB94 PO (21:05)
[2021-08-12] MEDS ORDERED: MELA5TAB40 PO (21:05)
[2021-08-13] MEDS ORDERED: FOLI-130 PO (12:55)
[2021-08-13] MEDS ORDERED: FAMO20 PO (12:55)
[2021-08-13] MEDS ORDERED: THIA100T80 PO (12:55)
[2021-08-13] MEDS ORDERED: MULT-1239 PO (12:55)
[2021-08-20] MEDS ORDERED: INSU100I26 SQ (12:02)
== END 2021-08-12 15:00 | DRG 420 ==
LOC: EMS 10:13 → ICUN 08-10 09:13 → 5S 08-10 16:06
PROVIDERS: ADMIT Internal Medicine; ATTEND Internal Medicine
DX: E11.10 Type 2 diabetes mellitus with ketoacidosis without coma (principal); R45.851 Suicidal ideations; F25.9 Schizoaffective disorder, unspecified; E87.1 Hypo-osmolality and hyponatremia; E78.5 Hyperlipidemia, unspecified; E87.5 Hyperkalemia; I10 Essential (primary) hypertension; E66.9 Obesity, unspecified; Z20.822 Contact with and (suspected) exposure to COVID-19; F32.9 Major depressive disorder, single episode, unspecified; E78.00 Pure hypercholesterolemia, unspecified; E11.65 Type 2 diabetes mellitus with hyperglycemia; Z88.8 Allergy status to other drugs, medicaments and biological substances; Z68.36 Body mass index [BMI] 36.0-36.9, adult; Z88.0 Allergy status to penicillin; Z79.4 Long term (current) use of insulin; Z91.19 Patient's noncompliance with other medical treatment and regimen
CPT/HCPCS: 36600; 71045; 80048; 80053; 81001; 81003; 82009; 82550; 82805; 82962; 83690; 83735; 83880; 83930; 84100; 84484; 85025; 93005; 99291; G0480; J1644; J1815; J1885; J2270; J2405; J3480; J3490; J7030; J7050; 36415-L1; 36415-TC

== ENCOUNTER 2021-08-12 12:17 | Inpatient (IN) | payer MEDICAID ==
[~2021-08-12] VITALS: Ht 167.6 cm; Wt 100.6 kg
[2021-08-12] MEDS ORDERED: OLANZapine 5 MG RAPDIS TABLET PO PRN (14:00)
[2021-08-12] MEDS ORDERED: GuaiFENesin/D-METHORPHAN [SUGAR-FREE] 200-20MG/10 ML SYRUP UDCUP PO PRN (14:00)
[2021-08-12] MEDS ORDERED: LORazepam 2 MG TABLET PO PRN (14:00)
[2021-08-12] MEDS ORDERED: HydrOXYzine PAMOATE 50 MG CAPSULE PO PRN (14:00)
[2021-08-12] MEDS ORDERED: TUBERCULIN, PURIFIED PROTEIN DERIVATIVE 5 TU/0.1 ML SYRINGE ID ONE (14:00)
[2021-08-12] MEDS ORDERED: ZOLPIDEM TARTRATE 10 MG TABLET PO PRN (14:00)
[2021-08-12] MEDS ORDERED: PROMETHAZINE HCL 25 MG TABLET PO PRN (14:00)
[2021-08-12] MEDS ORDERED: DEXTROSE 50%-WATER 25 GM/50 ML SYRINGE IVP PRN (15:15)
[2021-08-12] MEDS ORDERED: INSULIN LISPRO 100 UNITS/ML SQ PRN (15:15)
[2021-08-12 16:38] VITALS: BP 125/80
[2021-08-12] MEDS: FAMOTIDINE 20 MG TABLET PO SCH (17:00)
[2021-08-12] MEDS ORDERED: ACAMPROSATE CALCIUM 333 MG DR TABLET PO SCH (17:00)
[2021-08-12] MEDS ORDERED: INSULIN GLARGINE,HUM.REC.ANLOG 100 UNITS/ML SQ SCH (17:00)
[2021-08-12] MEDS: AmLODIPine BESYLATE 5 MG TABLET PO SCH (17:00)
[2021-08-12] MEDS: THIAMINE 100 MG TABLET PO SCH (17:25)
[2021-08-12] MEDS ORDERED: MELATONIN 5 MG TABLET PO SCH (21:00)
[2021-08-12] MEDS ORDERED: OLANZapine 5 MG RAPDIS TABLET PO SCH (21:00)
[2021-08-12] MEDS ORDERED: OLAN5TAB94 PO (21:05)
[2021-08-12] MEDS ORDERED: OMEG-135 PO (21:05)
[2021-08-12] MEDS ORDERED: NALT50TA PO (21:05)
[2021-08-12] MEDS ORDERED: PROZ20 PO (21:05)
[2021-08-12] MEDS ORDERED: MELA5TAB40 PO (21:05)
[2021-08-12] MEDS ORDERED: INSULIN GLARGINE,HUM.REC.ANLOG 100 UNITS/ML SQ ONE (22:15)
[2021-08-12] MEDS ORDERED: INSULIN LISPRO 100 UNITS/ML SQ ONE (22:30)
[2021-08-13 01:45] VITALS: BP 114/76
[2021-08-13 06:20] LABS: GLUCOMETER DEV NAME(LOC) 3EX.; GLUCOSE,POINT OF CARE 203 MG/DL (70-110)
[2021-08-13] MEDS: INSULIN LISPRO 100 UNITS/ML SQ PRN ×2 (07:00→12:15)
[2021-08-13] MEDS ORDERED: FOLIC ACID 1 MG TABLET PO SCH (09:00)
[2021-08-13] MEDS ORDERED: MULTIVITAMINS WITH MINERALS, THERAPEUTIC TABLET PO SCH (09:00)
[2021-08-13] MEDS ORDERED: FLUoxetine HCL 20 MG CAPSULE PO SCH (09:00)
[2021-08-13] MEDS ORDERED: INSULIN GLARGINE,HUM.REC.ANLOG 100 UNITS/ML SQ SCH (09:00)
[2021-08-13] MEDS ORDERED: OMEGA-3/DHA/EPA/FISH OIL 1,000 MG CAPSULE PO SCH (09:00)
[2021-08-13] MEDS ORDERED: NALTREXONE HCL 50 MG TABLET PO SCH (09:00)
[2021-08-13] MEDS: AmLODIPine BESYLATE 5 MG TABLET PO SCH (09:08)
[2021-08-13] MEDS: FAMOTIDINE 20 MG TABLET PO SCH (09:08)
[2021-08-13] MEDS: THIAMINE 100 MG TABLET PO SCH (09:08)
[2021-08-13 10:08] VITALS: BP 127/82
[2021-08-13 10:41] LABS: GLUCOMETER DEV NAME(LOC) 3EX.; GLUCOSE,POINT OF CARE 193 MG/DL (70-110)
[2021-08-13 12:34] LABS: GLUCOMETER DEV NAME(LOC) 3EX.; GLUCOSE,POINT OF CARE 198 MG/DL (70-110)
[2021-08-13] MEDS ORDERED: MULT-1239 PO (12:55)
[2021-08-13] MEDS ORDERED: FAMO20 PO (12:55)
[2021-08-13] MEDS ORDERED: THIA100T80 PO (12:55)
[2021-08-13] MEDS ORDERED: FOLI-130 PO (12:55)
[2021-08-16 12:05] LABS: GLUCOMETER DEV NAME(LOC) 3EX.; GLUCOSE,POINT OF CARE 440 MG/DL (70-110)
[2021-08-16 12:05] LABS: GLUCOMETER DEV NAME(LOC) 3EX.; GLUCOSE,POINT OF CARE 464 MG/DL (70-110)
[2021-08-17 09:33] LABS: GLUCOMETER DEV NAME(LOC) 3EX.; GLUCOSE,POINT OF CARE 91 MG/DL (70-110)
[2021-08-17 09:33] LABS: GLUCOMETER DEV NAME(LOC) 3EX.; GLUCOSE,POINT OF CARE 40 MG/DL (70-110)
[2021-08-20] MEDS ORDERED: INSU100I26 SQ (12:02)
== END 2021-08-13 15:45 | disposition home or self-care (01) | DRG 750 ==
LOC: 3EI 15:15
PROVIDERS: ADMIT Psychiatry & Neurology Psychiatry; ATTEND Psychiatry & Neurology Psychiatry
DX: F25.9 Schizoaffective disorder, unspecified (principal); R45.851 Suicidal ideations; E87.1 Hypo-osmolality and hyponatremia; E11.9 Type 2 diabetes mellitus without complications; Z79.899 Other long term (current) drug therapy; E78.5 Hyperlipidemia, unspecified; F15.90 Other stimulant use, unspecified, uncomplicated; F32.A Depression, unspecified; F60.0 Paranoid personality disorder; I10 Essential (primary) hypertension; K21.9 Gastro-esophageal reflux disease without esophagitis; E66.9 Obesity, unspecified; Z55.9 Problems related to education and literacy, unspecified; Z59.9 Problem related to housing and economic circumstances, unspecified; Z63.9 Problem related to primary support group, unspecified; Z65.3 Problems related to other legal circumstances; Z88.0 Allergy status to penicillin; Z68.35 Body mass index [BMI] 35.0-35.9, adult; Z88.8 Allergy status to other drugs, medicaments and biological substances
CPT/HCPCS: 82962; 87081; J1815; Q9967

== ENCOUNTER 2021-10-18 19:48 | Inpatient (IN) | payer MEDICAID, OTHER ==
[~2021-10-18] VITALS: Ht 167.6 cm; Wt 101.2 kg
[~2021-10-18 19:48] MED LIST changes: +FAMO20 PO; -FLUO20CA36 PO; +FOLI-130 PO; -GABA-529 PO; -INSLAN SQ; +INSU100I26 SQ; +MELA5TAB40 PO; +MULT-1239 PO; +NALT50TA PO; +OLAN5TAB94 PO; +OMEG-135 PO; +PROZ20 PO; +THIA100T80 PO
[2021-10-18 20:51] LABS: BASOPHILS % (AUTO) 0.6 % (0.0-2.0); EOSINOPHILS % (AUTO) 1.6 % (1.0-6.0); HEMATOCRIT 41.7 % (41-53); HEMOGLOBIN 14.5 g/dL (13.5-17.5); LYMPHOCYTES # (AUTO) 2.1 K/uL (1.0-4.8); LYMPHOCYTES % (AUTO) 19.8 % (22.0-44.0); MEAN CORPUSCULAR HEMOGLOBIN 27.6 pg (26.0-34.0); MEAN CORPUSCULAR HGB CONC 34.7 G/dL (31.0-37.0); MEAN CORPUSCULAR VOLUME 79 fL (80-100); MONOCYTES # (AUTO) 0.7 K/uL (0.1-1.0); MONOCYTES % (AUTO) 6.6 % (2.0-9.0); NEUTROPHILS # (AUTO) 7.6 K/uL (1.8-7.7); NEUTROPHILS % (AUTO) 71.4 % (40.0-70.0); PLATELET COUNT (AUTO) 445 K/uL (150-450); RED BLOOD CELL COUNT(AUTO) 5.26 MIL/uL (4.50-5.90); RED CELL DISTRIBUTION WIDTH 13.1 % (11.5-14.5)
[2021-10-18 21:02] LABS: ANION GAP 15 mmol/L (8-16); CALCIUM, TOTAL 11.4 mg/dL (8.8-10.5); CARBON DIOXIDE 23 mmol/L (22-29); CHLORIDE 98 mmol/L (98-107); CREATININE 1.19 mg/dL (0.60-1.30); GLOMERULAR FILTR. RATE CALC > 60 mL/min (>60); GLUCOSE,RANDOM 292 mg/dL (70-110); POTASSIUM 3.5 mmol/L (3.5-5.1); SODIUM SERUM 136 mmol/L (136-145); UREA NITROGEN, BLOOD 12 mg/dL (7-18)
[2021-10-18 21:08] LABS: ALANINE AMINOTRANSFERASE 37 U/L (12-78); ALBUMIN 3.4 g/dL (3.4-5.0); ALKALINE PHOSPHATASE 137 U/L (46-116); ASPARTATE AMINOTRANSFERASE 20 U/L (15-37); BILIRUBIN,TOTAL 0.4 mg/dL (0.1-1.0); TOTAL PROTEIN, SERUM 7.8 g/dL (6.4-8.2)
[2021-10-18 21:42] LABS: COVID AG,FIA SOURCE NASOPHARYNGEAL
[2021-10-18] MEDS ORDERED: ZOLPIDEM TARTRATE 10 MG TABLET PO PRN (22:45)
[2021-10-18] MEDS ORDERED: OLANZapine 5 MG RAPDIS TABLET PO PRN (22:45)
[2021-10-19 00:36] LABS: CHOL/HDL RATIO 5.5 (4.2-7.3); CHOLESTEROL 208 mg/dL (131-200); HDL CHOLESTEROL 38 mg/dL (40-60); LDL CHOL (CALC.) 128 mg/dL (0-130); TRIGLYCERIDES 212 mg/dL (15-150)
[2021-10-19 07:45] LABS: ALANINE AMINOTRANSFERASE 32 U/L (12-78); ALBUMIN 2.8 g/dL (3.4-5.0); ALKALINE PHOSPHATASE 110 U/L (46-116); ANION GAP 15 mmol/L (8-16); ASPARTATE AMINOTRANSFERASE 20 U/L (15-37); BILIRUBIN,TOTAL 0.5 mg/dL (0.1-1.0); CALCIUM, TOTAL 9.3 mg/dL (8.8-10.5); CARBON DIOXIDE 20 mmol/L (22-29); CHLORIDE 98 mmol/L (98-107); CREATININE 1.17 mg/dL (0.60-1.30); GLOMERULAR FILTR. RATE CALC > 60 mL/min (>60); POTASSIUM 4.2 mmol/L (3.5-5.1); SODIUM SERUM 133 mmol/L (136-145); TOTAL PROTEIN, SERUM 6.7 g/dL (6.4-8.2); UREA NITROGEN, BLOOD 14 mg/dL (7-18)
[2021-10-19 07:47] LABS: GLUCOSE,RANDOM 500 mg/dL (70-110)
[2021-10-19 07:56] LABS: GLUCOMETER DEV NAME(LOC) ERT.5; GLUCOSE,POINT OF CARE 466 MG/DL (70-110)
[2021-10-19 09:14] LABS: AMPHET/METH SCREEN,URINE NEGATIVE (NEGATIVE); BARBITURATE SCREEN, URINE NEGATIVE (NEGATIVE); BENZODIAZEPINES SCREEN,URINE NEGATIVE (NEGATIVE); CANNABINOID SCREEN,URINE NEGATIVE (NEGATIVE); COCAINE SCREEN,URINE NEGATIVE (NEGATIVE); METHADONE SCREEN, URINE NEGATIVE (NEGATIVE); OPIATE SCREEN,URINE NEGATIVE (NEGATIVE)
[2021-10-19] MEDS ORDERED: INSULIN REGULAR, HUMAN 100 UNITS/ML SQ ONE (09:15)
[2021-10-19] MEDS ORDERED: PROMETHAZINE HCL 25 MG TABLET PO PRN (10:00)
[2021-10-19] MEDS ORDERED: MAG HYDROX/AL HYDROX/SIMETH ES 30 ML SUSPENSION UDCUP PO PRN (10:00)
[2021-10-19] MEDS ORDERED: ACETAMINOPHEN 325 MG TABLET PO PRN (10:00)
[2021-10-19] MEDS ORDERED: MAGNESIUM HYDROXIDE SUSPENSION 30 ML UDCUP PO PRN (10:00)
[2021-10-19] MEDS ORDERED: PALIPERIDONE PALMITATE 234 MG/1.5 ML SYRINGE IM ONE (10:00)
[2021-10-19] MEDS ORDERED: HydrOXYzine PAMOATE 50 MG CAPSULE PO PRN (10:00)
[2021-10-19] MEDS ORDERED: GuaiFENesin/D-METHORPHAN [SUGAR-FREE] 200-20MG/10 ML SYRUP UDCUP PO PRN (10:00)
[2021-10-19] MEDS ORDERED: LOPERAMIDE HCL 2 MG CAPSULE PO PRN (10:00)
[2021-10-19 10:06] LABS: GLUCOMETER DEV NAME(LOC) ERT.5; GLUCOSE,POINT OF CARE 548 MG/DL (70-110)
[2021-10-19 10:11] LABS: APPEARANCE,URINE CLEAR (CLEAR); BILIRUBIN,URINE NEGATIVE (NEGATIVE); GLUCOSE, URINE (UA) >=1000 mg/dL (NEGATIVE); KETONES,URINE >=80 mg/dL (NEGATIVE); LEUKOCYTE ESTERASE ,URINE NEGATIVE (NEGATIVE); NITRATE,URINE NEGATIVE (NEGATIVE); OCCULT BLOOD,URINE NEGATIVE (NEGATIVE); PROTEIN,URINE NEGATIVE (NEGATIVE); UROBILINOGEN,URINE 0.2 mg/dL (<=1.0)
[2021-10-19 10:13] LABS: PHENCYCLIDINE SCREEN,URINE NEGATIVE (NEGATIVE)
[2021-10-19 10:23] LABS: BACTERIA,URINE None Seen /HPF (None Seen); RBC,URINE None Seen /HPF (0-2); TRANSITIONAL EPI CELLS,URINE Few /LPF (None Seen); WBC,URINE 0-2 /HPF (0-5)
[2021-10-19] MEDS ORDERED: INSULIN GLARGINE,HUM.REC.ANLOG 100 UNITS/ML SQ ONE (10:30)
[2021-10-19 10:41] LABS: GLUCOMETER DEV NAME(LOC) ERT.5; GLUCOSE,POINT OF CARE > 600 MG/DL (70-110)
[2021-10-19 11:46] LABS: GLUCOMETER DEV NAME(LOC) ERT.5; GLUCOSE,POINT OF CARE 562 MG/DL (70-110)
[2021-10-19] MEDS ORDERED: DEXTROSE 50%-WATER 25 GM/50 ML SYRINGE IVP PRN (12:15)
[2021-10-19 16:06] LABS: GLUCOMETER DEV NAME(LOC) ERT.5; GLUCOSE,POINT OF CARE 454 MG/DL (70-110)
[2021-10-19] MEDS: INSULIN GLARGINE,HUM.REC.ANLOG 100 UNITS/ML SQ SCH ×2 (16:24→22:17)
[2021-10-19 17:26] LABS: GLUCOMETER DEV NAME(LOC) ERT.5; GLUCOSE,POINT OF CARE 445 MG/DL (70-110)
[2021-10-19] MEDS: INSULIN LISPRO 100 UNITS/ML SQ PRN ×2 (18:09→21:03)
[2021-10-19] MEDS ORDERED: ACETAMINOPHEN 500 MG TABLET PO ONE (20:15)
[2021-10-19] MEDS ORDERED: LORazepam 2 MG TABLET PO ONE (20:15)
[2021-10-19] MEDS ORDERED: MAG HYDROX/AL HYDROX/SIMETH ES 30 ML SUSPENSION UDCUP PO ONE (20:15)
[2021-10-19 20:52] LABS: GLUCOMETER DEV NAME(LOC) ERT.5; GLUCOSE,POINT OF CARE 240 MG/DL (70-110)
[2021-10-19] MEDS: MELATONIN 5 MG TABLET PO SCH (21:00)
[2021-10-19] MEDS ORDERED: OLANZapine 5 MG RAPDIS TABLET PO SCH (21:00)
[2021-10-19] MEDS: THIAMINE 100 MG TABLET PO SCH (21:02)
[2021-10-19 21:50] VITALS: BP 146/99
[2021-10-19 22:16] LABS: GLUCOMETER DEV NAME(LOC) 3EX.; GLUCOSE,POINT OF CARE 179 MG/DL (70-110)
[2021-10-20] MEDS: INSULIN LISPRO 100 UNITS/ML SQ PRN ×4 (06:26→20:58)
[2021-10-20 06:36] LABS: GLUCOMETER DEV NAME(LOC) 3EX.; GLUCOSE,POINT OF CARE 138 MG/DL (70-110)
[2021-10-20] MEDS: OMEGA-3/DHA/EPA/FISH OIL 1,000 MG CAPSULE PO SCH (08:35)
[2021-10-20] MEDS: FOLIC ACID 1 MG TABLET PO SCH (08:35)
[2021-10-20] MEDS: FLUoxetine HCL 20 MG CAPSULE PO SCH (08:35)
[2021-10-20] MEDS: NALTREXONE HCL 50 MG TABLET PO SCH (08:35)
[2021-10-20] MEDS: THIAMINE 100 MG TABLET PO SCH ×2 (08:35→17:02)
[2021-10-20] MEDS: MULTIVITAMINS WITH MINERALS, THERAPEUTIC TABLET PO SCH (08:35)
[2021-10-20] MEDS: NICOTINE 21 MG/24 HOUR PATCH TD SCH (08:36)
[2021-10-20 09:31] LABS: HEMOGLOBIN A1C 6.8 % (3.8-5.6)
[2021-10-20 09:45] LABS: CHOL/HDL RATIO 5.1 (4.2-7.3); FREE T4 (FREE THYROXINE) 1.11 ng/dL (0.76-1.46); THYROID STIMULATING HORMONE 0.21 uIU/mL (0.36-3.74)
[2021-10-20 10:07] VITALS: BP 133/77
[2021-10-20 11:27] LABS: GLUCOMETER DEV NAME(LOC) 3EX.; GLUCOSE,POINT OF CARE 212 MG/DL (70-110)
[2021-10-20] MEDS: LORazepam 2 MG TABLET PO PRN (12:49)
[2021-10-20 16:58] VITALS: BP 156/98
[2021-10-20 17:01] LABS: GLUCOMETER DEV NAME(LOC) 3EX.; GLUCOSE,POINT OF CARE 289 MG/DL (70-110)
[2021-10-20] MEDS: MetFORMIN HCL 500 MG TABLET PO SCH (17:02)
[2021-10-20] MEDS: INSULIN GLARGINE,HUM.REC.ANLOG 100 UNITS/ML SQ SCH (17:08)
[2021-10-20] MEDS: MELATONIN 5 MG TABLET PO SCH (20:56)
[2021-10-20 21:06] LABS: GLUCOMETER DEV NAME(LOC) 3EX.; GLUCOSE,POINT OF CARE 239 MG/DL (70-110)
[2021-10-20 23:47] LABS: COVID AG,FIA SOURCE NASAL SWAB
[2021-10-21 05:31] LABS: GLUCOMETER DEV NAME(LOC) 3EX.; GLUCOSE,POINT OF CARE 163 MG/DL (70-110)
[2021-10-21] MEDS: MetFORMIN HCL 500 MG TABLET PO SCH ×2 (07:01→16:56)
[2021-10-21] MEDS: INSULIN LISPRO 100 UNITS/ML SQ PRN ×4 (07:03→20:47)
[2021-10-21] MEDS: FLUoxetine HCL 20 MG CAPSULE PO SCH (08:53)
[2021-10-21] MEDS: NALTREXONE HCL 50 MG TABLET PO SCH (08:53)
[2021-10-21] MEDS: OMEGA-3/DHA/EPA/FISH OIL 1,000 MG CAPSULE PO SCH (08:53)
[2021-10-21] MEDS: MULTIVITAMINS WITH MINERALS, THERAPEUTIC TABLET PO SCH (08:53)
[2021-10-21] MEDS: FOLIC ACID 1 MG TABLET PO SCH (08:53)
[2021-10-21] MEDS: THIAMINE 100 MG TABLET PO SCH ×2 (08:53→16:56)
[2021-10-21] MEDS: NICOTINE 21 MG/24 HOUR PATCH TD SCH (09:09)
[2021-10-21 09:11] VITALS: BP 142/91
[2021-10-21] MEDS: INSULIN GLARGINE,HUM.REC.ANLOG 100 UNITS/ML SQ SCH ×2 (09:13→17:05)
[2021-10-21] MEDS: LORazepam 2 MG TABLET PO PRN ×2 (11:43→17:57)
[2021-10-21 11:52] LABS: GLUCOMETER DEV NAME(LOC) 3EX.; GLUCOSE,POINT OF CARE 304 MG/DL (70-110)
[2021-10-21] MEDS ORDERED: PALI156D IM (15:23)
[2021-10-21] MEDS ORDERED: NALT50TA PO (15:23)
[2021-10-21] MEDS ORDERED: PROZ20 PO (15:23)
[2021-10-21] MEDS ORDERED: PALI117D IM (15:23)
[2021-10-21] MEDS ORDERED: OMEG-135 PO (15:23)
[2021-10-21] MEDS ORDERED: MELA5TAB40 PO (15:23)
[2021-10-21 16:00] VITALS: BP 140/86
[2021-10-21 16:31] LABS: GLUCOMETER DEV NAME(LOC) 3EX.; GLUCOSE,POINT OF CARE 271 MG/DL (70-110)
[2021-10-21 20:31] LABS: GLUCOMETER DEV NAME(LOC) 3EX.; GLUCOSE,POINT OF CARE 272 MG/DL (70-110)
[2021-10-21] MEDS: MELATONIN 5 MG TABLET PO SCH (20:43)
[2021-10-22 06:41] LABS: GLUCOMETER DEV NAME(LOC) 3EX.; GLUCOSE,POINT OF CARE 137 MG/DL (70-110)
[2021-10-22] MEDS: INSULIN LISPRO 100 UNITS/ML SQ PRN ×2 (06:43→12:33)
[2021-10-22] MEDS: MetFORMIN HCL 500 MG TABLET PO SCH (06:43)
[2021-10-22] MEDS: THIAMINE 100 MG TABLET PO SCH (08:39)
[2021-10-22] MEDS: FOLIC ACID 1 MG TABLET PO SCH (08:39)
[2021-10-22] MEDS: MULTIVITAMINS WITH MINERALS, THERAPEUTIC TABLET PO SCH (08:39)
[2021-10-22] MEDS: NALTREXONE HCL 50 MG TABLET PO SCH (08:39)
[2021-10-22] MEDS: NICOTINE 21 MG/24 HOUR PATCH TD SCH (08:39)
[2021-10-22] MEDS: OMEGA-3/DHA/EPA/FISH OIL 1,000 MG CAPSULE PO SCH (08:39)
[2021-10-22] MEDS ORDERED: FLUoxetine HCL 20 MG CAPSULE PO SCH (09:00)
[2021-10-22] MEDS ORDERED: INSULIN GLARGINE,HUM.REC.ANLOG 100 UNITS/ML SQ SCH ×2 (09:00→17:00)
[2021-10-22] MEDS ORDERED: METF-1211 PO (10:22)
[2021-10-22] MEDS ORDERED: INSLAN SQ (10:22)
[2021-10-22 10:54] VITALS: BP 150/97
[2021-10-22 11:21] LABS: GLUCOMETER DEV NAME(LOC) 3EX.; GLUCOSE,POINT OF CARE 291 MG/DL (70-110)
[2021-10-22] MEDS: LORazepam 2 MG TABLET PO PRN (12:40)
[2021-10-23] MEDS ORDERED: PALIPERIDONE PALMITATE 156 MG/ML SYRINGE IM ONE (09:00)
== END 2021-10-22 15:00 | disposition home or self-care (01) | DRG 750 ==
LOC: EMS 19:49 → 3EI 10-19 21:36
PROVIDERS: ADMIT Psychiatry & Neurology Psychiatry; ATTEND Psychiatry & Neurology Psychiatry
DX: F25.9 Schizoaffective disorder, unspecified (principal); R45.851 Suicidal ideations; Z91.14 Patient's other noncompliance with medication regimen; Z20.822 Contact with and (suspected) exposure to COVID-19; E10.65 Type 1 diabetes mellitus with hyperglycemia; E78.00 Pure hypercholesterolemia, unspecified; E78.5 Hyperlipidemia, unspecified; F15.10 Other stimulant abuse, uncomplicated; I10 Essential (primary) hypertension; F17.210 Nicotine dependence, cigarettes, uncomplicated; E66.9 Obesity, unspecified; J44.9 Chronic obstructive pulmonary disease, unspecified; Z55.9 Problems related to education and literacy, unspecified; Z68.36 Body mass index [BMI] 36.0-36.9, adult; Z59.9 Problem related to housing and economic circumstances, unspecified; Z63.9 Problem related to primary support group, unspecified; Z65.3 Problems related to other legal circumstances; Z91.51 Personal history of suicidal behavior; Z88.0 Allergy status to penicillin; Z88.5 Allergy status to narcotic agent; Z88.1 Allergy status to other antibiotic agents; Z88.8 Allergy status to other drugs, medicaments and biological substances; Z79.899 Other long term (current) drug therapy; Z79.4 Long term (current) use of insulin
CPT/HCPCS: 80053; 80061; 81001; 82009; 82962; 83036; 84439; 84443; 85025; 86592; 99285; G0480; J1815; Q9967

== ENCOUNTER 2021-12-30 16:23 | Emergency (ER) | payer MEDICAID, OTHER ==
[~2021-12-30] VITALS: Ht 167.6 cm; Wt 104.5 kg
[~2021-12-30 16:23] MED LIST changes: -AMLO-257 PO; -FAMO20 PO; -FOLI-130 PO; +INSLAN SQ; -INSU100I26 SQ; +METF-1211 PO; -MULT-1239 PO; -OLAN5TAB94 PO; +OMEG-108 PO; -OMEG-135 PO; +PALI117D IM; +PALI156D IM; -THIA100T80 PO
[2021-12-30 17:06] VITALS: BP 147/68
[2021-12-30] MEDS ORDERED: SODIUM CHLORIDE 0.9% 1,000 ML IV ONE (17:15)
[2021-12-30] MEDS ORDERED: INSULIN REGULAR, HUMAN 100 UNITS/ML IVP ONE (17:15)
[2021-12-30 17:23] LABS: BASOPHILS % (AUTO) 0.9 % (0.0-2.0); HEMATOCRIT 42.2 % (41-53); HEMOGLOBIN 14.2 g/dL (13.5-17.5); LYMPHOCYTES % (AUTO) 23.3 % (22.0-44.0); MEAN CORPUSCULAR HEMOGLOBIN 26.3 pg (26.0-34.0); MEAN CORPUSCULAR HGB CONC 33.7 G/dL (31.0-37.0); MEAN CORPUSCULAR VOLUME 78 fL (80-100); MONOCYTES # (AUTO) 0.3 K/uL (0.1-1.0); MONOCYTES % (AUTO) 3.4 % (2.0-9.0); NEUTROPHILS # (AUTO) 6.1 K/uL (1.8-7.7); NEUTROPHILS % (AUTO) 70.4 % (40.0-70.0); PLATELET COUNT (AUTO) 406 K/uL (150-450); RED CELL DISTRIBUTION WIDTH 14.2 % (11.5-14.5)
[2021-12-30 17:43] LABS: ALANINE AMINOTRANSFERASE 32 U/L (12-78); ALBUMIN 3.3 g/dL (3.4-5.0); ALKALINE PHOSPHATASE 136 U/L (46-116); ANION GAP 17 mmol/L (8-16); ASPARTATE AMINOTRANSFERASE 26 U/L (15-37); BILIRUBIN,TOTAL 0.1 mg/dL (0.1-1.0); CALCIUM, TOTAL 8.9 mg/dL (8.8-10.5); CARBON DIOXIDE 19 mmol/L (22-29); CHLORIDE 99 mmol/L (98-107); CREATININE 0.99 mg/dL (0.60-1.30); GLOMERULAR FILTR. RATE CALC > 60 mL/min (>60); POTASSIUM 3.8 mmol/L (3.5-5.1); SODIUM SERUM 135 mmol/L (136-145); TOTAL PROTEIN, SERUM 7.4 g/dL (6.4-8.2); UREA NITROGEN, BLOOD 11 mg/dL (7-18)
[2021-12-30 17:44] LABS: SALICYLATE 4.6 mg/dL (2.8-20.0)
[2021-12-30 17:50] LABS: ACETAMINOPHEN < 2 mcg/mL (10-30); GLUCOSE,RANDOM 512 mg/dL (70-110)
== END 2021-12-30 19:24 | disposition home or self-care (01) ==
LOC: EMS 16:27
DX: R45.851 Suicidal ideations (principal); E11.65 Type 2 diabetes mellitus with hyperglycemia; F15.90 Other stimulant use, unspecified, uncomplicated; F17.210 Nicotine dependence, cigarettes, uncomplicated; I10 Essential (primary) hypertension; E78.00 Pure hypercholesterolemia, unspecified; F32.9 Major depressive disorder, single episode, unspecified; F14.90 Cocaine use, unspecified, uncomplicated; Z88.0 Allergy status to penicillin; Z88.5 Allergy status to narcotic agent; Z79.899 Other long term (current) drug therapy; Z79.4 Long term (current) use of insulin
CPT/HCPCS: 36415; 80053; 82948; 82962; 85025; 96361; 96374; 99285; G0480; J1815; J7030; G0481

== ENCOUNTER 2022-04-12 08:05 | Inpatient (IN) | payer OTHER ==
[~2022-04-12] VITALS: Ht 167.6 cm; Wt 103.2 kg
[2022-04-12] VITALS (7 sets, daily range): BP systolic 123–144; BP diastolic 69–83
[2022-04-12] MEDS ORDERED: SODIUM CHLORIDE 0.9% 1,000 ML IV ONE (08:30)
[2022-04-12 08:56] LABS: BASOPHILS % (AUTO) 0.4 % (0.0-2.0); EOSINOPHILS % (AUTO) 0.2 % (1.0-6.0); HEMATOCRIT 49.4 % (41-53); LYMPHOCYTES # (AUTO) 1.2 K/uL (1.0-4.8); LYMPHOCYTES % (AUTO) 7.3 % (22.0-44.0); MEAN CORPUSCULAR HEMOGLOBIN 26.4 pg (26.0-34.0); MEAN CORPUSCULAR HGB CONC 32.3 G/dL (31.0-37.0); MEAN CORPUSCULAR VOLUME 82 fL (80-100); MONOCYTES # (AUTO) 1.2 K/uL (0.1-1.0); MONOCYTES % (AUTO) 7.4 % (2.0-9.0); NEUTROPHILS # (AUTO) 13.6 K/uL (1.8-7.7); NEUTROPHILS % (AUTO) 84.7 % (40.0-70.0); PLATELET COUNT (AUTO) 399 K/uL (150-450); RED BLOOD CELL COUNT(AUTO) 6.05 MIL/uL (4.50-5.90); RED CELL DISTRIBUTION WIDTH 14.4 % (11.5-14.5)
[2022-04-12] MEDS ORDERED: INSULIN REGULAR, HUMAN 100 UNITS/ML IVP ONE ×2 (09:00→11:15)
[2022-04-12 09:10] LABS: ALBUMIN 3.6 g/dL (3.4-5.0); BILIRUBIN,TOTAL 0.6 mg/dL (0.1-1.0); CREATININE 1.47 mg/dL (0.60-1.30); TOTAL PROTEIN, SERUM 8.4 g/dL (6.4-8.2)
[2022-04-12 09:13] LABS: CALCIUM, TOTAL 13.7 mg/dL (8.8-10.5)
[2022-04-12] MEDS ORDERED: LIDOCAINE/PF 2% 5 ML VIAL SQ ONE (10:30)
[2022-04-12] MEDS ORDERED: LIDOCAINE 1% 10 ML VIAL SQ ONE (10:45)
[2022-04-12] MEDS ORDERED: DIAZEPAM 5 MG/ML 2 ML SYRINGE IVP ONE (10:45)
[2022-04-12] MEDS ORDERED: BUPRENORPHINE HCL/NALOXONE HCL 8-2 MG SUBLINGUAL TABLET SL ONE (10:45)
[2022-04-12] MEDS ORDERED: VENL-68 PO (11:10)
[2022-04-12] MEDS ORDERED: ERGO500054 PO (11:10)
[2022-04-12] MEDS ORDERED: VARE1TAB28 PO (11:10)
[2022-04-12] MEDS ORDERED: AMLO5TAB66 PO (11:10)
[2022-04-12] MEDS ORDERED: PRAZ1 PO (11:10)
[2022-04-12] MEDS ORDERED: CLOZ25TA4 PO (11:10)
[2022-04-12] MEDS ORDERED: INSU100I34 SQ (11:10)
[2022-04-12] MEDS ORDERED: PALI234D IM (11:10)
[2022-04-12] MEDS ORDERED: FLUO40CA PO (11:10)
[2022-04-12] MEDS ORDERED: NICO-575 PO (11:10)
[2022-04-12] MEDS ORDERED: CLON0.1T2 PO (11:10)
[2022-04-12] MEDS ORDERED: CLOZ200T PO (11:10)
[2022-04-12] MEDS ORDERED: NALO4SPR3 NASAL (11:10)
[2022-04-12] MEDS ORDERED: PROP10TA72 PO (11:10)
[2022-04-12 11:11] LABS: GLUCOSE,POINT OF CARE > 600 MG/DL (70-110)
[2022-04-12] MEDS ORDERED: POTASSIUM CHL 20 MEQ/0.45% NS 1,000 ML IV PRN (11:15)
[2022-04-12] MEDS ORDERED: SODIUM CHLORIDE 0.9% 1,000 ML IV SCH (11:15)
[2022-04-12] MEDS ORDERED: DEXTROSE 50%-WATER 25 GM/50 ML SYRINGE IVP PRN (11:15)
[2022-04-12] MEDS ORDERED: POTASSIUM CHLORIDE 40 MEQ in SODIUM CHLORIDE 0.45% 1,000 ML IV PRN (11:15)
[2022-04-12 11:22] LABS: COVID AG,FIA SOURCE NASAL SWAB
[2022-04-12 11:26] LABS: GLUCOSE,POINT OF CARE > 600 MG/DL (70-110)
[2022-04-12] MEDS: INSULIN REGULAR, HUMAN 100 UNITS in SODIUM CHLORIDE 0.9% 99 ML IV PRN ×4 (11:50→21:46)
[2022-04-12 12:09] LABS: ABG BASE EXCESS -29.5 mmol/L (-2.0-3.0); ABG CARBOXYHEMOGLOBIN 0.1 % (0.0-3.0); ABG METHEMOGLOBIN 0.5 % (0.0-1.5); ABG OXYGEN CONTENT 22.5 mL/dL (15.0-23.0); ABG OXYGEN SATURATION 98.4 % (95.0-98.0); ABG OXYHEMOGLOBIN 97.8 % (94.0-100.0); ABG TOTAL HEMOGLOBIN 16.2 G/dL (12.0-18.0); SOURCE, BLOOD GAS ARTERIAL; TEMPERATURE, FAHRENHEIT, BG 100.9 FAHREN (96.0-98.6)
[2022-04-12 12:10] LABS: ABG HCO3 6.8 mmol/L (22.0-26.0); ABG PCO2 10 mmHg (35-45); ABG PH 6.961 (7.350-7.450); O2 DEVICE,BLOOD GAS ROOM AIR (ROOM AIR); SITE, BLOOD GAS RT RADIAL
[2022-04-12 12:16] LABS: GLUCOSE,POINT OF CARE > 600 MG/DL (70-110)
[2022-04-12 12:25] LABS: APPEARANCE,URINE CLEAR (CLEAR); BILIRUBIN,URINE NEGATIVE (NEGATIVE); GLUCOSE, URINE (UA) >=1000 mg/dL (NEGATIVE); KETONES,URINE 80-100 mg/dL (NEGATIVE); LEUKOCYTE ESTERASE ,URINE NEGATIVE (NEGATIVE); NITRATE,URINE NEGATIVE (NEGATIVE); OCCULT BLOOD,URINE TRACE (NEGATIVE); PROTEIN,URINE TRACE mg/dL (NEGATIVE); SPECIFIC GRAVITIY, URINE 1.016 (1.003-1.030); UROBILINOGEN,URINE <=1.0 mg/dL (<=1.0)
[2022-04-12 12:27] LABS: CALCIUM, TOTAL 9.8 mg/dL (8.8-10.5); CHLORIDE 101 mmol/L (98-107); CREATININE 1.73 mg/dL (0.60-1.30); POTASSIUM 5.1 mmol/L (3.5-5.1); SODIUM SERUM 137 mmol/L (136-145); UREA NITROGEN, BLOOD 21 mg/dL (7-18)
[2022-04-12 12:32] LABS: BACTERIA,URINE None Seen /HPF (None Seen); RBC,URINE 0-2 /HPF (0-2); WBC,URINE None Seen /HPF (0-5)
[2022-04-12 12:38] LABS: ANION GAP 31 mmol/L (8-16); CARBON DIOXIDE < 5 mmol/L (22-29); GLOMERULAR FILTR. RATE CALC 48 mL/min (>60); GLUCOSE,RANDOM 682 mg/dL (70-110)
[2022-04-12 13:11] LABS: GLUCOSE,POINT OF CARE 529 MG/DL (70-110)
[2022-04-12] MEDS: PANTOPRAZOLE SODIUM 40 MG/VIAL IVP SCH (14:04)
[2022-04-12] MEDS: INSULIN REGULAR, HUMAN 100 UNITS/ML IVP PRN ×2 (14:06→15:05)
[2022-04-12 14:16] LABS: GLUCOSE,POINT OF CARE 461 MG/DL (70-110)
[2022-04-12] MEDS: ACETAMINOPHEN 325 MG TABLET PO PRN ×2 (14:59→20:31)
[2022-04-12 15:07] LABS: AMPHET/METH SCREEN,URINE POSITIVE (NEGATIVE); BARBITURATE SCREEN, URINE NEGATIVE (NEGATIVE); BENZODIAZEPINES SCREEN,URINE NEGATIVE (NEGATIVE); CANNABINOID SCREEN,URINE NEGATIVE (NEGATIVE); COCAINE SCREEN,URINE NEGATIVE (NEGATIVE); METHADONE SCREEN, URINE NEGATIVE (NEGATIVE); OPIATE SCREEN,URINE NEGATIVE (NEGATIVE); PHENCYCLIDINE SCREEN,URINE NEGATIVE (NEGATIVE)
[2022-04-12 15:16] LABS: GLUCOSE,POINT OF CARE 334 MG/DL (70-110)
[2022-04-12 15:38] LABS: CREATININE 1.94 mg/dL (0.60-1.30); POTASSIUM 4.2 mmol/L (3.5-5.1)
[2022-04-12 15:57] LABS: CALCIUM, TOTAL 11.7 mg/dL (8.8-10.5)
[2022-04-12] MEDS: HEPARIN SODIUM,PORCINE 5,000 UNITS/ML VIAL SQ SCH ×2 (16:24→23:50)
[2022-04-12] MEDS: DEXTROSE 5%-0.45% SODIUM CHL 1,000 ML IV PRN (16:24)
[2022-04-12 16:30] LABS: GLUCOSE,POINT OF CARE 205 MG/DL (70-110)
[2022-04-12 17:16] LABS: GLUCOSE,POINT OF CARE 190 MG/DL (70-110)
[2022-04-12 18:14] LABS: CREATININE,URINE RANDOM 31.4 mg/dL (30.0-125.0)
[2022-04-12 18:27] LABS: GLUCOSE,POINT OF CARE 116 MG/DL (70-110)
[2022-04-12] MEDS: NICOTINE 14 MG/24 HOUR PATCH TD SCH (18:30)
[2022-04-12 19:25] LABS: GLUCOSE,POINT OF CARE 209 MG/DL (70-110)
[2022-04-12 19:31] LABS: CREATININE 1.45 mg/dL (0.60-1.30); POTASSIUM 4.3 mmol/L (3.5-5.1)
[2022-04-12 19:33] LABS: CALCIUM, TOTAL 11.6 mg/dL (8.8-10.5)
[2022-04-12 20:21] LABS: GLUCOSE,POINT OF CARE 185 MG/DL (70-110)
[2022-04-12] MEDS: DOCUSATE SODIUM 100 MG CAPSULE PO SCH (20:32)
[2022-04-12] MEDS: SODIUM CHLORIDE 0.45% 1,000 ML IV PRN (20:34)
[2022-04-12 21:26] LABS: GLUCOSE,POINT OF CARE 151 MG/DL (70-110)
[2022-04-12 22:21] LABS: GLUCOSE,POINT OF CARE 137 MG/DL (70-110)
[2022-04-12 23:16] LABS: GLUCOSE,POINT OF CARE 113 MG/DL (70-110)
[2022-04-13] VITALS (9 sets, daily range): BP systolic 119–159; BP diastolic 65–94
[2022-04-13 00:06] LABS: ANION GAP 11 mmol/L (8-16); CALCIUM, TOTAL 11.3 mg/dL (8.8-10.5); CARBON DIOXIDE 19 mmol/L (22-29); CHLORIDE 108 mmol/L (98-107); CREATININE 1.32 mg/dL (0.60-1.30); GLUCOSE,RANDOM 110 mg/dL (70-110); POTASSIUM 3.9 mmol/L (3.5-5.1); SODIUM SERUM 138 mmol/L (136-145); UREA NITROGEN, BLOOD 21 mg/dL (7-18)
[2022-04-13 00:09] LABS: GLOMERULAR FILTR. RATE CALC > 60 mL/min (>60)
[2022-04-13 00:31] LABS: GLUCOSE,POINT OF CARE 102 MG/DL (70-110)
[2022-04-13] MEDS: ACETAMINOPHEN 325 MG TABLET PO PRN ×4 (01:07→20:58)
[2022-04-13 01:26] LABS: GLUCOSE,POINT OF CARE 104 MG/DL (70-110)
[2022-04-13 04:16] LABS: GLUCOSE,POINT OF CARE 101 MG/DL (70-110)
[2022-04-13 04:16] LABS: GLUCOSE,POINT OF CARE 133 MG/DL (70-110)
[2022-04-13 04:16] LABS: GLUCOSE,POINT OF CARE 120 MG/DL (70-110)
[2022-04-13 05:21] LABS: GLUCOSE,POINT OF CARE 148 MG/DL (70-110)
[2022-04-13] MEDS: DEXTROSE 5%-0.45% SODIUM CHL 1,000 ML IV PRN (05:34)
[2022-04-13 05:39] LABS: ALANINE AMINOTRANSFERASE 18 U/L (12-78); ALBUMIN 2.5 g/dL (3.4-5.0); ALKALINE PHOSPHATASE 111 U/L (46-116); ANION GAP 16 mmol/L (8-16); ASPARTATE AMINOTRANSFERASE 10 U/L (15-37); BILIRUBIN,TOTAL 0.4 mg/dL (0.1-1.0); CALCIUM, TOTAL 10.1 mg/dL (8.8-10.5); CARBON DIOXIDE 16 mmol/L (22-29); CHLORIDE 106 mmol/L (98-107); CREATININE 1.18 mg/dL (0.60-1.30); GLUCOSE,RANDOM 167 mg/dL (70-110); PHOSPHORUS 3.6 mg/dL (2.5-4.9); POTASSIUM 4.5 mmol/L (3.5-5.1); SODIUM SERUM 138 mmol/L (136-145); TOTAL PROTEIN, SERUM 5.9 g/dL (6.4-8.2); UREA NITROGEN, BLOOD 19 mg/dL (7-18)
[2022-04-13 05:40] LABS: GLOMERULAR FILTR. RATE CALC > 60 mL/min (>60)
[2022-04-13 07:41] LABS: GLUCOSE,POINT OF CARE 196 MG/DL (70-110)
[2022-04-13] MEDS: HEPARIN SODIUM,PORCINE 5,000 UNITS/ML VIAL SQ SCH ×2 (08:40→16:24)
[2022-04-13] MEDS: NICOTINE 14 MG/24 HOUR PATCH TD SCH (08:40)
[2022-04-13] MEDS: SODIUM CHLORIDE 0.45% 1,000 ML IV PRN (08:40)
[2022-04-13] MEDS: PANTOPRAZOLE SODIUM 40 MG/VIAL IVP SCH (08:41)
[2022-04-13] MEDS: ONDANSETRON HCL 4 MG/2 ML VIAL IVP PRN ×3 (08:41→20:59)
[2022-04-13] MEDS: DOCUSATE SODIUM 100 MG CAPSULE PO SCH ×2 (08:58→20:58)
[2022-04-13 09:01] LABS: GLUCOSE,POINT OF CARE 204 MG/DL (70-110)
[2022-04-13 09:26] LABS: ANION GAP 12 mmol/L (8-16); CALCIUM, TOTAL 9.1 mg/dL (8.8-10.5); CARBON DIOXIDE 16 mmol/L (22-29); CHLORIDE 106 mmol/L (98-107); CREATININE 1.08 mg/dL (0.60-1.30); GLUCOSE,RANDOM 312 mg/dL (70-110); SODIUM SERUM 134 mmol/L (136-145); UREA NITROGEN, BLOOD 16 mg/dL (7-18)
[2022-04-13 09:30] LABS: POTASSIUM 6.5 mmol/L (3.5-5.1)
[2022-04-13 09:31] LABS: GLOMERULAR FILTR. RATE CALC > 60 mL/min (>60)
[2022-04-13 10:49] LABS: ANION GAP 10 mmol/L (8-16); CALCIUM, TOTAL 10.7 mg/dL (8.8-10.5); CARBON DIOXIDE 15 mmol/L (22-29); CHLORIDE 109 mmol/L (98-107); CREATININE 1.15 mg/dL (0.60-1.30); GLOMERULAR FILTR. RATE CALC > 60 mL/min (>60); GLUCOSE,RANDOM 226 mg/dL (70-110); POTASSIUM 4.3 mmol/L (3.5-5.1); SODIUM SERUM 134 mmol/L (136-145); UREA NITROGEN, BLOOD 16 mg/dL (7-18)
[2022-04-13 11:51] LABS: GLUCOSE,POINT OF CARE 195 MG/DL (70-110)
[2022-04-13 11:51] LABS: GLUCOSE,POINT OF CARE 200 MG/DL (70-110)
[2022-04-13 12:21] LABS: GLUCOSE,POINT OF CARE 154 MG/DL (70-110)
[2022-04-13 14:46] LABS: ANION GAP 6 mmol/L (8-16); CALCIUM, TOTAL 9.8 mg/dL (8.8-10.5); CARBON DIOXIDE 21 mmol/L (22-29); CHLORIDE 108 mmol/L (98-107); CREATININE 0.99 mg/dL (0.60-1.30); GLOMERULAR FILTR. RATE CALC > 60 mL/min (>60); GLUCOSE,RANDOM 129 mg/dL (70-110); POTASSIUM 3.5 mmol/L (3.5-5.1); SODIUM SERUM 135 mmol/L (136-145); UREA NITROGEN, BLOOD 13 mg/dL (7-18)
[2022-04-13] MEDS ORDERED: SODIUM CHLORIDE 0.9% 1,000 ML IV ONE (15:45)
[2022-04-13] MEDS ORDERED: DEXTROSE 50%-WATER 25 GM/50 ML SYRINGE IVP PRN (15:45)
[2022-04-13] MEDS ORDERED: POTASSIUM CHL 10 MEQ/WATER 50 ML IV PRN (16:00)
[2022-04-13] MEDS ORDERED: POTASSIUM CHLORIDE 20 MEQ ER TABLET PO PRN (16:00)
[2022-04-13] MEDS: POTASSIUM CHL 10 MEQ/WATER 50 ML IV PRN ×3 (16:23→18:00)
[2022-04-13] MEDS: INSULIN LISPRO 100 UNITS/ML SQ PRN ×2 (17:42→22:09)
[2022-04-13 20:42] LABS: GLUCOSE,POINT OF CARE 105 MG/DL (70-110)
[2022-04-13 20:42] LABS: GLUCOSE,POINT OF CARE 393 MG/DL (70-110)
[2022-04-13 20:42] LABS: GLUCOSE,POINT OF CARE 162 MG/DL (70-110)
[2022-04-13 20:42] LABS: GLUCOSE,POINT OF CARE 144 MG/DL (70-110)
[2022-04-13 20:42] LABS: GLUCOSE,POINT OF CARE 204 MG/DL (70-110)
[2022-04-13 22:02] LABS: GLUCOMETER DEV NAME(LOC) 5S.2B; GLUCOSE,POINT OF CARE 361 MG/DL (70-110)
[2022-04-13] MEDS: INSULIN GLARGINE,HUM.REC.ANLOG 100 UNITS/ML SQ SCH (22:08)
[2022-04-14 00:03] VITALS: BP 129/77
[2022-04-14] MEDS: HEPARIN SODIUM,PORCINE 5,000 UNITS/ML VIAL SQ SCH ×4 (00:28→23:36)
[2022-04-14 04:12] VITALS: BP 140/85
[2022-04-14] MEDS: ONDANSETRON HCL 4 MG/2 ML VIAL IVP PRN ×4 (06:05→20:56)
[2022-04-14 06:31] LABS: GLUCOMETER DEV NAME(LOC) 5S.1B; GLUCOSE,POINT OF CARE 174 MG/DL (70-110)
[2022-04-14 06:33] LABS: PHOSPHORUS 2.4 mg/dL (2.5-4.9)
[2022-04-14 06:44] LABS: BASOPHILS % (AUTO) 0.7 % (0.0-2.0); EOSINOPHILS % (AUTO) 1.5 % (1.0-6.0); HEMATOCRIT 35.5 % (41-53); HEMOGLOBIN 12.1 g/dL (13.5-17.5); LYMPHOCYTES # (AUTO) 1.9 K/uL (1.0-4.8); LYMPHOCYTES % (AUTO) 26.4 % (22.0-44.0); MEAN CORPUSCULAR HEMOGLOBIN 26.8 pg (26.0-34.0); MEAN CORPUSCULAR VOLUME 79 fL (80-100); MONOCYTES # (AUTO) 0.6 K/uL (0.1-1.0); MONOCYTES % (AUTO) 8.4 % (2.0-9.0); NEUTROPHILS # (AUTO) 4.6 K/uL (1.8-7.7); PLATELET COUNT (AUTO) 244 K/uL (150-450); RED BLOOD CELL COUNT(AUTO) 4.51 MIL/uL (4.50-5.90); RED CELL DISTRIBUTION WIDTH 13.8 % (11.5-14.5)
[2022-04-14 07:54] VITALS: BP 138/80
[2022-04-14] MEDS: DOCUSATE SODIUM 100 MG CAPSULE PO SCH ×2 (09:24→20:56)
[2022-04-14] MEDS: PANTOPRAZOLE SODIUM 40 MG/VIAL IVP SCH (09:24)
[2022-04-14] MEDS: NICOTINE 14 MG/24 HOUR PATCH TD SCH (09:25)
[2022-04-14] MEDS: INSULIN GLARGINE,HUM.REC.ANLOG 100 UNITS/ML SQ SCH ×2 (09:25→21:32)
[2022-04-14 10:03] LABS: ANION GAP 9 mmol/L (8-16); CALCIUM, TOTAL 9.4 mg/dL (8.8-10.5); CARBON DIOXIDE 21 mmol/L (22-29); CHLORIDE 108 mmol/L (98-107); CREATININE 0.89 mg/dL (0.60-1.30); GLUCOSE,RANDOM 220 mg/dL (70-110); POTASSIUM 3.6 mmol/L (3.5-5.1); SODIUM SERUM 138 mmol/L (136-145); UREA NITROGEN, BLOOD 9 mg/dL (7-18)
[2022-04-14 10:04] LABS: GLOMERULAR FILTR. RATE CALC > 60 mL/min (>60)
[2022-04-14 10:06] LABS: GLUCOMETER DEV NAME(LOC) 5S.2B; GLUCOSE,POINT OF CARE 360 MG/DL (70-110)
[2022-04-14] MEDS ORDERED: MAGNESIUM SULFATE 2 GM/WATER 50 ML IV PRN (10:30)
[2022-04-14] MEDS ORDERED: MAGNESIUM SULFATE 4 GM/WATER 100 ML IV PRN (10:30)
[2022-04-14] MEDS ORDERED: MAGNESIUM OXIDE 400 MG TABLET PO PRN (10:30)
[2022-04-14 11:21] VITALS: BP 140/81
[2022-04-14] MEDS ORDERED: SODIUM CHLORIDE 0.9% 250 ML IV ONE (11:39)
[2022-04-14 11:52] LABS: ALBUMIN 2.5 g/dL (3.4-5.0)
[2022-04-14] MEDS: INSULIN LISPRO 100 UNITS/ML SQ PRN ×3 (12:00→21:33)
[2022-04-14 12:41] LABS: GLUCOMETER DEV NAME(LOC) 5S.2B; GLUCOSE,POINT OF CARE 379 MG/DL (70-110)
[2022-04-14 16:18] VITALS: BP 130/80
[2022-04-14] MEDS ORDERED: MAGNESIUM SULFATE 3 GM in DEXTROSE 5%-WATER 100 ML IV ONE (16:30)
[2022-04-14 18:10] LABS: GLUCOMETER DEV NAME(LOC) 5N.1C; GLUCOSE,POINT OF CARE 371 MG/DL (70-110)
[2022-04-14] MEDS: ACETAMINOPHEN 325 MG TABLET PO PRN (20:55)
[2022-04-14] MEDS: SODIUM,POTASSIUM PHOSPHATES POWDER PACKET PO SCH (20:56)
[2022-04-14 21:46] LABS: GLUCOMETER DEV NAME(LOC) 5S.2B; GLUCOSE,POINT OF CARE 317 MG/DL (70-110)
[2022-04-15] MEDS: INSULIN LISPRO 100 UNITS/ML SQ PRN ×3 (06:16→17:51)
[2022-04-15 06:41] LABS: ANION GAP 8 mmol/L (8-16); CALCIUM, TOTAL 8.8 mg/dL (8.8-10.5); CARBON DIOXIDE 25 mmol/L (22-29); CHLORIDE 105 mmol/L (98-107); CREATININE 0.73 mg/dL (0.60-1.30); GLUCOSE,RANDOM 325 mg/dL (70-110); PHOSPHORUS 3.4 mg/dL (2.5-4.9); POTASSIUM 3.9 mmol/L (3.5-5.1); SODIUM SERUM 138 mmol/L (136-145); UREA NITROGEN, BLOOD 13 mg/dL (7-18)
[2022-04-15 07:15] LABS: GLOMERULAR FILTR. RATE CALC > 60 mL/min (>60)
[2022-04-15 07:53] VITALS: BP 126/73
[2022-04-15] MEDS: SODIUM,POTASSIUM PHOSPHATES POWDER PACKET PO SCH (09:31)
[2022-04-15] MEDS: ONDANSETRON HCL 4 MG/2 ML VIAL IVP PRN (09:31)
[2022-04-15] MEDS: HEPARIN SODIUM,PORCINE 5,000 UNITS/ML VIAL SQ SCH ×2 (09:32→16:36)
[2022-04-15] MEDS: PANTOPRAZOLE SODIUM 40 MG/VIAL IVP SCH (09:32)
[2022-04-15] MEDS: DOCUSATE SODIUM 100 MG CAPSULE PO SCH (09:32)
[2022-04-15] MEDS: NICOTINE 14 MG/24 HOUR PATCH TD SCH (09:36)
[2022-04-15] MEDS: INSULIN GLARGINE,HUM.REC.ANLOG 100 UNITS/ML SQ SCH (09:45)
[2022-04-15] MEDS ORDERED: INSULIN GLARGINE,HUM.REC.ANLOG 100 UNITS/ML SQ ONE (12:00)
[2022-04-15 15:35] VITALS: BP 107/88
[2022-04-15 20:21] LABS: GLUCOMETER DEV NAME(LOC) 5S.2B; GLUCOSE,POINT OF CARE 370 MG/DL (70-110)
[2022-04-15 20:21] LABS: GLUCOMETER DEV NAME(LOC) 5S.2B; GLUCOSE,POINT OF CARE 260 MG/DL (70-110)
[2022-04-15] MEDS ORDERED: INSULIN GLARGINE,HUM.REC.ANLOG 100 UNITS/ML SQ SCH (21:00)
[2022-04-16 07:51] LABS: GLUCOMETER DEV NAME(LOC) 5N.1C; GLUCOSE,POINT OF CARE 274 MG/DL (70-110)
== END 2022-04-15 18:00 | disposition home or self-care (01) | DRG 420 ==
LOC: EMS 08:06 → ICU 12:40 → 5S 04-13 19:00
PROVIDERS: ADMIT Internal Medicine; ATTEND Internal Medicine
PROC: 06HY33Z Insertion of Infusion Device into Lower Vein, Percutaneous Approach (ICD-10-PCS; principal; 2022-04-12)
PROC: B54BZZA Ultrasonography of Right Lower Extremity Veins, Guidance (ICD-10-PCS; 2022-04-12)
DX: E11.10 Type 2 diabetes mellitus with ketoacidosis without coma (principal); N17.9 Acute kidney failure, unspecified; E83.39 Other disorders of phosphorus metabolism; R65.10 Systemic inflammatory response syndrome (SIRS) of non-infectious origin without acute organ dysfunction; E86.0 Dehydration; E83.52 Hypercalcemia; I10 Essential (primary) hypertension; F15.10 Other stimulant abuse, uncomplicated; E83.42 Hypomagnesemia; E87.1 Hypo-osmolality and hyponatremia; E87.5 Hyperkalemia; Z20.822 Contact with and (suspected) exposure to COVID-19; F20.9 Schizophrenia, unspecified; Z83.3 Family history of diabetes mellitus; Z87.442 Personal history of urinary calculi; Z79.4 Long term (current) use of insulin; Z79.84 Long term (current) use of oral hypoglycemic drugs; Z87.891 Personal history of nicotine dependence; Z91.19 Patient's noncompliance with other medical treatment and regimen
CPT/HCPCS: 36600; 71045; 76770; 80048; 80053; 80307; 81001; 82040; 82570; 82805; 82962; 83036; 83605; 83735; 84100; 84132; 84145; 84300; 84540; 85025; 87081; 93005; 99291; C9113; G0378; J1644; J1815; J2405; J3475; J3480; J3490; J7030; J7050; J7060; 36415-L1; 36415-TC

== ENCOUNTER 2022-08-18 12:24 | Emergency (ER) | payer OTHER ==
[~2022-08-18] VITALS: Ht 167.6 cm; Wt 90.9 kg
[~2022-08-18 12:24] MED LIST changes: +CARV6 PO; +INSU100I34 SQ; +LOSA-382 PO; -MELA5TAB40 PO; -METF-1211 PO; +MULT-660 PO; -NALT50TA PO; -OMEG-108 PO; -PALI117D IM; -PALI156D IM; -PROZ20 PO; +THIA100T80 PO
[2022-08-18] MEDS ORDERED: INSU100V SQ (12:30)
[2022-08-18] MEDS ORDERED: CLOZ25TA55 PO (12:30)
[2022-08-18] MEDS ORDERED: CLOZ200T8 PO (12:40)
[2022-08-18] MEDS ORDERED: AMLO10TA55 PO (12:40)
[2022-08-18] MEDS ORDERED: METO-408 PO (12:40)
[2022-08-18] MEDS ORDERED: BUPR-317 PO (12:40)
[2022-08-18] MEDS ORDERED: CLON0.1T2 PO (12:40)
[2022-08-18] MEDS ORDERED: CHOL500043 PO (12:40)
[2022-08-18] MEDS ORDERED: NALO4SPR3 NASAL (12:40)
[2022-08-18] MEDS ORDERED: PALI234D IM (12:40)
[2022-08-18] MEDS ORDERED: INSU100V36 SQ (12:40)
[2022-08-18] MEDS ORDERED: PRAZ1 PO (12:40)
[2022-08-18] MEDS ORDERED: ACETAMINOPHEN 325 MG TABLET PO ONE (13:15)
[2022-08-18] MEDS ORDERED: MORPHINE SULFATE 15 MG IR TABLET PO ONE (13:15)
[2022-08-18] MEDS ORDERED: CLIN300C58 PO (13:16)
[2022-08-18 13:51] VITALS: BP 130/86
== END 2022-08-18 13:52 | disposition home or self-care (01) ==
LOC: EMS 12:28
DX: K02.9 Dental caries, unspecified (principal); F32.A Depression, unspecified; E11.9 Type 2 diabetes mellitus without complications; E78.00 Pure hypercholesterolemia, unspecified; I10 Essential (primary) hypertension; F20.9 Schizophrenia, unspecified; F14.90 Cocaine use, unspecified, uncomplicated; F15.90 Other stimulant use, unspecified, uncomplicated; Z88.0 Allergy status to penicillin; Z88.1 Allergy status to other antibiotic agents; Z88.2 Allergy status to sulfonamides
CPT/HCPCS: 82962; 99283

== ENCOUNTER 2022-08-19 14:15 | Emergency (ER) | payer OTHER ==
[~2022-08-19] VITALS: Ht 167.6 cm; Wt 104.5 kg
[~2022-08-19 14:15] MED LIST changes: +AMLO10TA55 PO; +BUPR-317 PO; +CHOL500043 PO; +CLIN300C58 PO; +CLON0.1T2 PO; +CLOZ200T8 PO; +CLOZ25TA55 PO; +INSU100V SQ; +INSU100V36 SQ; +METO-408 PO; +NALO4SPR3 NASAL; +PALI234D IM; +PRAZ1 PO
[2022-08-19 14:23] VITALS: BP 132/96
== END 2022-08-19 17:02 | disposition left against medical advice (07) ==
LOC: EMS 14:15
DX: K08.89 Other specified disorders of teeth and supporting structures (principal); Z53.21 Procedure and treatment not carried out due to patient leaving prior to being seen by health care provider